=== PATIENT | female | born 1950 | race Caucasian/White ===

== ENCOUNTER 2019-08-19 14:27 | Inpatient (IN) | payer MEDICARE, OTHER ==
[~2019-08-19 14:27] MED LIST: ISOVUE-370 76%-LOCM 1 ML ONE
--- NOTE | 2019-08-19 14:46 | CT ---
CT Brain WO Con: 08/19/2019 12:00 AM CLINICAL HISTORY: Level 1 stroke. COMPARISON: None. FINDINGS: Hemorrhage: None. There is prominence of the extra-axial spaces indicating mild volume loss preferentially of the front oparietal lobes. Subdural hygroma formation not entirely excluded. Correlation with prior exams would be helpful in this regard. Ventricular system: Normal in size and morphology for the patient's age. Cerebral parenchyma: Mild microvascular ischemic disease. Midline shift: None. Mass: No mass effect. Calvarium: Normal. Visualized Paranasal sinuses: Clear. IMPRESSION: No acute intracranial hemorrhage or mass effect. Prominence of CSF density overlying the bifrontal convexities, as above. Telephone call placed to ER physician at 1440 hours.
[2019-08-19 14:50] LABS: Hemoglobin 13.2 g/dL (12.0-16.0); Mean Corpuscular HGB CONC 33.7 g/dL (32.0-36.0); Mean Corpuscular Hemoglobin 27.3 pg (27.0-31.0); Mean Platelet Volume 8.3 fL (7.4-10.4); Platelet Count 148 thou/uL (130-400); RBC Distribution Width 17.2 % (11.5-14.5); Red Blood Cell (RBC) Count 4.84 mill/uL (4.20-5.40); White Blood Cell (WBC) Count 9.6 thou/uL (4.8-10.8)
[2019-08-19 14:54] LABS: PTT 27.8 SEC (22.9-36.1); Prothrombin Time 12.9 SEC (12.0-14.7)
[2019-08-19 15:02] LABS: ALT (SGPT) 42 U/L (8-55); AST (SGOT) 92 U/L (5-34); Albumin 4.5 g/dL (3.4-4.8); Alkaline Phosphatase 82 U/L (40-110); Anion Gap 14 mmol/L (10-20); BUN (Urea Nitrogen) 13 mg/dL (9.8-20.1); Bilirubin, Total 0.4 mg/dL (0.2-1.2); CK (CPK) 2848 U/L (29-168); Calc. Creatinine Clearance 0 mL/min (70-130); Calcium 9.6 mg/dL (7.8-10.44); Carbon Dioxide 25 mmol/L (23-31); Chloride 90 mmol/L (98-107); Estimated GFR-MDRD 64; Globulin 3.4 g/dL (2.4-3.5); Glucose 68 mg/dL (80-115); Potassium 3.8 mmol/L (3.5-5.1); Protein, Total 7.9 g/dL (6.0-8.3); Sodium 125 mmol/L (136-145)
[2019-08-19 15:04] LABS: Anisocytosis SLIGHT = 6-15 cells (100X) (0-5/hpf); Band 7 % (5-11); Eosinophils 1 % (0-10); Lymphocytes 27 % (21-51); MDiff Complete? YES; Monocytes 3 % (0-10); Neutrophil 61 % (42-75); Platelet Morphology Comment Appears Adequate; Reactive Lymphocytes 1 % (0-10)
--- NOTE | 2019-08-19 15:04 | CT ---
CTA of the head with and without IV contrast and 3-D reformatted imaging. CTA of the neck with IV contrast and 3-D reformatted imaging 3 D Volume Rendering: DATE: 08/19/2019 12:00 AM HISTORY: Acute stroke, slurred speech COMPARISON: None FINDINGS: Right: CCA:No significant stenosis. Mild vascular calcification. ICA:No significant stenosis. Mild vascular calcification. MCA:No significant stenosis. SHAWNEE:No significant stenosis. [employer]ENDER:No significant stenosis. LEFT: CCA:Mild luminal narrowing of the mid left CCA due to predominantly noncalcified thrombus ICA:Vascular calcification, without significant stenosis MCA:No significant stenosis. SHAWNEE:No significant stenosis. AUT[employer] TENDER:No significant stenosis. Vertebrobasilar System: Left Vertebral:No significant stenosis. Right Vertebral:No significant stenosis. Basilar:Focal fenestration of the cephalad aspect of the basilar artery. Incidental note of pulmonary emphysema. IMPRESSION: Scattered vascular disease, without hemodynamically significant stenosis, occlusion or aneurysmal dil ation. Telephone call of findings provided to ER doctor at 1458 hours.
[2019-08-19] MEDS ORDERED: Aspirin Chewable 81 MG TAB ONE (15:19)
[2019-08-19] MEDS ORDERED: Senokot 8.6 MG TAB PO PRN (16:22)
[2019-08-19 17:48] VITALS: BMI 32.1
[2019-08-19] MEDS: Sodium Chloride 0.9% 1,000 ML IV SCH (19:14)
[2019-08-19] MEDS: Famotidine 20 MG TAB PO SCH (20:51)
[2019-08-19] MEDS ORDERED: PROVENTIL INHALER 6.7 G (200 INHALATIONS) INH PRN (21:02)
--- NOTE | 2019-08-20 02:01 | HP ---
CHIEF COMPLAINT: Slurred speech. HISTORY OF PRESENT ILLNESS: Ms. Carrera is a 69-year-old female, who was brought to the emergency room today for a chief complaint of slurred speech. This started about 1245 hours today. The patient reports that when she was having lunch with her daughter, her daughter mentioned that she had, had some slurred speech. The patient reports that she had a similar incident last week that resolved with time with no intervention. Past medical history pertinent for hypothyroidism, COPD, history of breast cancer, hyperlipidemia. The patient was worked up in the emergency room as a stroke. CT of the brain showed no acute intracranial hemorrhage or mass effect. CTA showed scattered vascular disease without any hemodynamically significant stenosis, occlusion, or dilatation. NIH scale on admission was 2 for some mild dysarthria, mild sensory deficits on the right side. Lab work was pertinent for sodium of 125, chloride 90, glucose 68, AST 92, CK was . Troponin undetectable. She is admitted to the stroke unit for further management. REVIEW OF SYSTEMS: Reports some dysphagia changes, dysarthria, mild sensory changes to the right side. All other systems reviewed and are negative unless mentioned in the HPI. PAST MEDICAL HISTORY: Hypothyroidism, COPD, breast cancer, and hyperlipidemia. PAST SURGICAL HISTORY: Left breast lumpectomy, bilateral hip replacement, hysterectomy, x2, tubal ligation and tonsillectomy. PSYCHIATRIC HISTORY: Anxiety. SOCIAL HISTORY: Reports that she has recently stopped drinking alcohol. She drank 2 shots per day last week. Denies any drug use. She is a former tobacco smoker, stopped more than 10 years ago. ALLERGIES: CODEINE. CURRENT MEDICATIONS: Albuterol inhaler 2 puffs q.6 hours as needed. PHYSICAL EXAMINATION: VITAL SIGNS: Blood pressure is 124/82, pulse is 64, respirations 18, temperature is 97.9, PO2 saturations are 96% on room air. CONSTITUTIONAL: She is alert and oriented to person, place, and time. She has some mild dysarthria, but follows tasks and instructions and answers questions appropriately. HEENT: Head is atraumatic and normocephalic. Eyes, pupils are equal, round, and reactive to light. Extraocular muscles are intact. There is no nystagmus. ENT, mouth exam is normal. Mucous membranes are moist. NECK: Normal range of motion. No tenderness. RESPIRATORY: Chest, breath sounds are clear. Chest expansion is equal. CARDIOVASCULAR: Regular rate and rhythm. Heart sounds are normal. ABDOMEN: Bowel sounds are normal. There is no tenderness on palpation. No peritoneal signs. BACK: Normal range of motion. No tenderness. EXTREMITIES: Upper extremities; range of motion is normal. Motor strength is normal. Mild ataxia of the right upper extremity. Radial pulse is normal. Lower extremity, normal range of motion. Motor strength is normal. Sensation intact to the left, impaired on the right. Pedal pulses are normal. NEURO: Some dysarthria, cerebellar deficits. [id number] is abnormal. Does have some mild dysarthria, mild ataxia of right upper extremity on [id number] exam. Decreased sensation to the right side. There is no aphasia. PSYCH: Has a normal affect. DIAGNOSTIC STUDIES: EKG in the emergency room shows a normal sinus rhythm, beats per minute 66, has an incomplete right bundle-branch block, first-degree AV block. PLAN/ASSESSMENT: 1. Dysarthria with some right-sided deficits. Obtain an MRI of the brain without contrast, echocardiogram, carotid Dopplers are necessary. Do the CTA. The patient was given an aspirin. We will continue this daily. The patient was not given tPA in the emergency room due to an NIH of 2. Check lipids and TSH. 2. Rhabdomyolysis with a CK of . Start normal saline at 75 mL per hour. Recheck value in the morning. 3. Hyponatremia, plan for osmolarity serum, electrolytes urine, creatinine urine and recheck values in the morning. 4. History of chronic obstructive pulmonary disease. I will restart her Albuterol inhaler, order some DuoNeb p.r.n. as needed. 5. Gastrointestinal and deep venous thrombosis prophylaxis has been started. 6. The patient is a full code. 7. Case discussed with Dr. Santos who agrees with plan. Job ID: [id number]
[2019-08-20] MEDS: rOPINIRole HCl 2 MG TAB PO PRN (03:43)
[2019-08-20 04:53] LABS: #Basophils 0.1 thou/uL (0.0-0.2); #Eosinphils 0.3 thou/uL (0.0-0.7); #Lymphocytes 2.3 thou/uL (1.20-3.40); #Monocytes 0.5 thou/uL (0.11-0.59); %Eosinophils 4.1 % (0.0-10.0); %Lymphocytes 31.9 % (21.0-51.0); %Monocytes 6.7 % (0.0-10.0); %Neutrophils 56.2 % (42.0-75.0); Hemoglobin 12.7 g/dL (12.0-16.0); Mean Corpuscular HGB CONC 33.1 g/dL (32.0-36.0); Mean Corpuscular Volume 81.7 fL (78.0-98.0); Mean Platelet Volume 8.2 fL (7.4-10.4); Platelet Count 143 thou/uL (130-400); RBC Distribution Width 17.3 % (11.5-14.5); Red Blood Cell (RBC) Count 4.69 mill/uL (4.20-5.40)
[2019-08-20 05:12] LABS: ALT (SGPT) 38 U/L (8-55); AST (SGOT) 78 U/L (5-34); Albumin 4.2 g/dL (3.4-4.8); Alkaline Phosphatase 78 U/L (40-110); Anion Gap 13 mmol/L (10-20); BUN (Urea Nitrogen) 13 mg/dL (9.8-20.1); Bilirubin, Total 0.2 mg/dL (0.2-1.2); CK (CPK) 2266 U/L (29-168); Calc. Creatinine Clearance 95 mL/min (70-130); Calcium 9.2 mg/dL (7.8-10.44); Carbon Dioxide 21 mmol/L (23-31); Chloride 94 mmol/L (98-107); Cholesterol 289 mg/dl (< 200 Desired); Estimated GFR-MDRD 70; Globulin 3.4 g/dL (2.4-3.5); Glucose 80 mg/dL (80-115); HDL Cholesterol 73 mg/dL (>60 Neg Risk); LDL Cholesterol, Calculated 182 mg/dL; Potassium 3.5 mmol/L (3.5-5.1); Protein, Total 7.6 g/dL (6.0-8.3); Sodium 124 mmol/L (136-145); Triglycerides 172 mg/dL (Less than 150)
[2019-08-20] MEDS ORDERED: FLU VACC TS2019-20(65YR UP)/PF 180 MCG/0.5 ML SYRINGE IM ONE (09:00)
[2019-08-20] MEDS: Famotidine 20 MG TAB PO SCH ×2 (10:06→21:06)
[2019-08-20] MEDS: Aspirin 325 mg Enteric Coated Tablet PO SCH (10:06)
[2019-08-20] MEDS: Enoxaparin Sodium 40 MG/0.4 ML SYRINGE SC SCH (10:07)
[2019-08-20] MEDS: Sodium Chloride 0.9% 1,000 ML IV SCH (10:08)
[2019-08-20] MEDS ORDERED: Non-Formulary Item 1 EACH (Levothyroxine Sodium [Synthroid] 137 MCG) PO SCH (11:23)
--- NOTE | 2019-08-20 11:24 | MRI ---
EXAM: MRI Brain WO Con PROVIDED CLINICAL HISTORY: Encephalopathy. Patient was a level 1 stroke alert with sudden onset of slurred speech on 08/19/2019. COMPARISON: CT head on 08/19/2019. FINDINGS: A few scattered punctate foci of increased FLAIR and T2-weighted signal intensity are seen in the per iventricular and subcortical white matter which are nonspecific but may be related to minimal chronic small vessel ischemic changes. There is no evidence of an acute infarction. Mild cerebral vol ume loss is present. The ventricular system is normal in size, shape, and position. The septum pellucidum and third ventricle are in the midline. Appropriate flow voids are demonstrated at the base of the brain. The orbits, paranasal sinuses, and skull base have a normal MRI appearance. IMPRESSION: No acute intracranial abnormality is demonstrated.
[2019-08-20] MEDS ORDERED: Levothyroxine Sodium 112 MCG TAB PO SCH (14:00)
[2019-08-20] MEDS ORDERED: Levothyroxine Sodium 25 MCG TAB PO SCH (14:00)
--- NOTE | 2019-08-20 14:20 | PDOC.HOSPP ---
- Subjective Encounter Date: 08/20/19 Encounter Time: 14:18 Subjective: Patient lying in bed with family at bedside. She reports feeling better today, no events over night. Walked with PT and tolerated well. MRI and other workup unremarkable, await echo. - Objective Vital Signs & Weight: Vital Signs (12 hours) Temp Pulse Pulse Pulse Resp BP BP 08/20/19 11:46 97.6 F 60 20 08/20/19 10:05 66 62 134/69 164/77 H 08/20/19 07:50 97.7 F 60 20 08/20/19 04:00 97.4 F L 60 16 BP Pulse Ox Pulse Ox Pulse Ox 08/20/19 11:46 171/78 H 95 08/20/19 10:05 97 96 08/20/19 07:50 150/73 H 95 08/20/19 04:00 148/75 H 94 L Weight Weight 205 lb 1.6 oz I&O: 08/19/19 08/20/19 08/21/19 06:59 06:59 06:59 Intake Total 1695 1559 Output Total 1150 Balance 545 1559 Result Diagrams: 08/20/19 04:27 08/20/19 04:27 Additional Labs: Accuchecks 08/19/19 14:34 POC Glucose 89 Radiology Reviewed by me: Yes Hospitalist ROS - Review of Systems Constitutional: denies: fever, chills, weakness Eyes: denies: vision change ENT: denies: nose discharge, mouth swelling, throat pain, throat swelling Respiratory: denies: cough, shortness of breath, SOB with excertion Cardiovascular: denies: chest pain, palpitations, light headedness Gastrointestinal: denies: nausea, vomiting, abdominal pain Musculoskeletal: denies: neck pain, shoulder pain, back pain Skin: denies: rash, lesions Neurological: denies: weakness, change in speech, confusion All other systems reviewed; all pertinent +/- noted in HPI/Subj - Medication Medications: Active Medications Generic Name Dose Route Start Last Admin Trade Name Freq PRN Reason Stop Dose Admin Albuterol Sulfate 2 puff 08/19/19 21:02 08/19/19 21:23 Proventil Hfa INH 2 puff Q6HR PRN Administration Dyspnea/Wheezing/SOB Aspirin 325 mg 08/20/19 09:00 08/20/19 10:06 Ecotrin PO 325 mg DAILY ESTEBAN Administration Enoxaparin Sodium 40 mg 08/20/19 09:00 08/20/19 10:07 Lovenox SC 40 mg 0900 ESTEBAN Administration Famotidine 20 mg 08/19/19 21:00 08/20/19 10:06 Pepcid PO 20 mg BID ESTEBAN Administration Sodium Chloride 1,000 mls @ 75 mls/hr 08/19/19 16:30 08/20/19 10:08 Normal Saline 0.9% IV 1,000 mls .[id number] ESTEBAN Administration Levothyroxine Sodium 112 mcg 08/20/19 14:00 08/20/19 13:50 Synthroid PO 08/20/19 16:00 112 mcg 1400 ESTEBAN Administration Levothyroxine Sodium 25 mcg 08/20/19 14:00 08/20/19 13:50 Synthroid PO 08/20/19 16:00 25 mcg 1400 ESTEBAN Administration Ropinirole HCl 3 mg 08/20/19 02:25 08/20/19 03:43 Requip PO 3 mg TID PRN Administration RESTLESS LEG - Exam General Appearance: NAD, awake alert Eye: PERRL, anicteric sclera ENT: normocephalic atraumatic, moist mucosa Neck: supple, symmetric Heart: RRR, no murmur Respiratory: CTAB, no wheezes Gastrointestinal: soft, non-tender, normal bowel sounds Extremities: no cyanosis, no clubbing Skin: normal turgor, no rashes Neurological: cranial nerve grossly intact, no new deficit Musculoskeletal: normal tone, no muscle wasting Psychiatric: normal affect, A&O x 3 Hosp A/P (1) Hyponatremia Code(s): E87.1 - HYPO-OSMOLALITY AND HYPONATREMIA Status: Acute (2) Rhabdomyolysis Code(s): M62.82 - RHABDOMYOLYSIS Status: Acute (3) Hypothyroidism Code(s): E03.9 - HYPOTHYROIDISM, UNSPECIFIED Status: Acute (4) COPD (chronic obstructive pulmonary disease) Status: Acute - Plan old records reviewed/req, plan discussed w/ family, PT/OT Hold home statin Nephrology consulted for hyponatremia, ordered UA and urine osmolarity MRI shows no acute infarction Await echo results Patient tolerating PT/OT and may continue on walking program Restart home dose of Synthroid as she has not had home meds in over a month
[2019-08-20 14:25] LABS: Anion Gap 15 mmol/L (10-20); BUN (Urea Nitrogen) 12 mg/dL (9.8-20.1); Calc. Creatinine Clearance 96 mL/min (70-130); Calcium 8.9 mg/dL (7.8-10.44); Carbon Dioxide 22 mmol/L (23-31); Chloride 94 mmol/L (98-107); Estimated GFR-MDRD 71; Glucose 87 mg/dL (80-115); Potassium 3.8 mmol/L (3.5-5.1); Sodium 127 mmol/L (136-145)
[2019-08-20 16:06] LABS: Bacteria/HPF None Seen HPF (None Seen); Bilirubin Negative (Negative); Blood, Urine Negative (Negative); Clarity Clear (Clear); Glucose, Urine (Dipstick) Normal (Negative); Leukocyte Negative Leu/uL (Negative); Nitrite Negative (Negative); Protein, Urine (Dipstick) Negative (Neg-Trace); RBC/HPF 0-3 HPF (0-3); Squamous Epithelial None Seen HPF (0-3); Urobilinogen Normal mg/dL (Less than 2); WBC/HPF 0-3 HPF (0-3)
[2019-08-20 16:54] LABS: Potassium, Urine Less than 10.0 mmol/L; Sodium, Urine 97 mmol/L (Not Available)
--- NOTE | 2019-08-20 18:59 | CON ---
DATE OF CONSULTATION: CONSULTING PHYSICIAN: Wade Anderson MD REQUESTING PHYSICIAN: MARLI Patton REASON FOR CONSULTATION: Hyponatremia. IMPRESSION: Hyponatremia. This is likely in the context of hypothyroidism, untreated. PLAN: 1. Discontinue IV fluid. 2. Resume thyroid replacement therapy. 3. Regular diet with increased protein intake. 4. Further management will be dependent on the clinical course. HISTORY OF PRESENT ILLNESS: History is that of a 69-year-old female patient, who presented here with slurred speech and noted with a sodium level of 124. Of note, for several months, the patient has not been taking her thyroid replacement medication because the primary care physician did not call in the medication for her while she has been out of town on work duties. In any case, the patient's evaluation revealed a sodium of 124 and a TSH that is mildly out of range. Urine chemistry is consistent with hypothyroidism-induced hyponatremia. As a result of this low sodium, decision has been taken to involve Renal in the management of this case. PAST MEDICAL HISTORY: Significant for hypothyroidism, COPD, breast cancer, dyslipidemia. SOCIAL HISTORY: Recently quit alcohol abuse. Remote tobacco use, more than 2 years ago. ALLERGIES: CODEINE. MEDICATIONS: Reviewed and as documented on [employer]. FAMILY HISTORY: Not significantly related to presenting illness. REVIEW OF SYSTEMS: As documented in the body of the history. All the other systems were reviewed and found not to be significantly related to presenting illness. PHYSICAL EXAMINATION: VITAL SIGNS: The patient noted with the following vital signs; afebrile, temperature 97.6, pulse 60, respiratory rate of 20, O2 saturation of 95% with blood pressure 171/78. HEENT: Unremarkable. Moist oral mucosa. No conjunctival injection or icterus. NECK: Supple. CARDIOVASCULAR SYSTEM: First and second heart sounds were heard. RESPIRATORY SYSTEM: Clear to auscultation. DIGESTIVE SYSTEM: Revealed a benign abdomen with positive bowel sounds. EXTREMITIES: No peripheral edema. SKIN: No new gross rash. LYMPHATICS: No peripheral lymphadenopathy. SUMMARY: A 69-year-old female patient who presented here with slurred speech and noted with hyponatremia in the context of suboptimal thyroid replacement therapy. Thank you for this consultation. We will follow with you. Job ID: [id number]
[2019-08-20] MEDS: Gabapentin 300 MG CAP PO SCH (21:06)
[2019-08-21 04:50] LABS: #Basophils 0.1 thou/uL (0.0-0.2); #Eosinphils 0.3 thou/uL (0.0-0.7); #Lymphocytes 1.8 thou/uL (1.20-3.40); #Monocytes 0.4 thou/uL (0.11-0.59); #Neutrophils 4.8 thou/uL (1.40-6.50); %Basophils 0.7 % (0.0-1.0); %Eosinophils 3.6 % (0.0-10.0); %Lymphocytes 24.8 % (21.0-51.0); %Neutrophils 64.9 % (42.0-75.0); Hemoglobin 12.7 g/dL (12.0-16.0); Mean Corpuscular HGB CONC 33.5 g/dL (32.0-36.0); Mean Corpuscular Hemoglobin 27.2 pg (27.0-31.0); Mean Corpuscular Volume 81.4 fL (78.0-98.0); Mean Platelet Volume 8.2 fL (7.4-10.4); Platelet Count 138 thou/uL (130-400); RBC Distribution Width 17.2 % (11.5-14.5); Red Blood Cell (RBC) Count 4.66 mill/uL (4.20-5.40); White Blood Cell (WBC) Count 7.3 thou/uL (4.8-10.8)
[2019-08-21 05:11] LABS: ALT (SGPT) 40 U/L (8-55); AST (SGOT) 86 U/L (5-34); Albumin 4.4 g/dL (3.4-4.8); Alkaline Phosphatase 76 U/L (40-110); Anion Gap 16 mmol/L (10-20); BUN (Urea Nitrogen) 8 mg/dL (9.8-20.1); Bilirubin, Total 0.3 mg/dL (0.2-1.2); Calc. Creatinine Clearance 103 mL/min (70-130); Carbon Dioxide 21 mmol/L (23-31); Chloride 94 mmol/L (98-107); Estimated GFR-MDRD 76; Globulin 3.5 g/dL (2.4-3.5); Glucose 88 mg/dL (80-115); Potassium 3.8 mmol/L (3.5-5.1); Protein, Total 7.9 g/dL (6.0-8.3); Sodium 127 mmol/L (136-145)
[2019-08-21] MEDS: Levothyroxine Sodium 25 MCG TAB PO SCH (06:38)
[2019-08-21] MEDS: Levothyroxine Sodium 112 MCG TAB PO SCH (06:38)
[2019-08-21] MEDS: Gabapentin 300 MG CAP PO SCH ×2 (08:22→20:49)
[2019-08-21] MEDS: Anastrozole 1 MG TAB PO SCH (08:22)
[2019-08-21] MEDS: Aspirin 325 mg Enteric Coated Tablet PO SCH (08:22)
[2019-08-21] MEDS: Famotidine 20 MG TAB PO SCH ×2 (08:22→20:49)
[2019-08-21] MEDS: Enoxaparin Sodium 40 MG/0.4 ML SYRINGE SC SCH (08:22)
[2019-08-21] MEDS: rOPINIRole HCl 2 MG TAB PO PRN (20:49)
--- NOTE | 2019-08-22 01:08 | DIS ---
DATE OF ADMISSION: 08/20/2019 DATE OF DISCHARGE: 08/21/2019 PRIMARY CARE PROVIDER: Unknown. DISCHARGE DIAGNOSES: 1. Transient ischemic attack. 2. Hypothyroidism. 3. Medication noncompliance. 4. Hyponatremia, secondary to hypothyroidism. CONDITION OF PATIENT ON THE DAY OF DISCHARGE: Stable. I assessed Ms. Carrera on the day of discharge. She denies any chest pain or shortness of breath. Vital signs are stable. S1 and S2 are heard, regular. Lungs are clear to auscultation bilaterally. CONSULTATIONS DURING THIS HOSPITALIZATION: Nephrology, Wade Anderson MD DISCHARGE MEDICATIONS: 1. Albuterol p.r.n. 2. Arimidex 1 mg daily. 3. Neurontin 300 mg 2 times a day. 4. Synthroid 137 mcg daily. 5. Loratadine 10 mg daily. 6. Oxybutynin 10 mg daily. 7. Requip 3 mg 3 times a day as needed. 8. Sertraline 50 mg daily. 9. Simvastatin 40 mg at bedtime. 10. Aspirin 325 mg daily. HOSPITAL COURSE: Ms. Carrera is a pleasant 69-year-old lady, who was admitted to [facility] for transient ischemic attack on August 19, 2019. Please refer to Ms. Farmer's history and physical note dated August 20, 2019, for further details. She was also found to be in rhabdomyolysis and hyponatremic. Her hyponatremia was secondary to hypothyroidism in the context of medication noncompliance. Her TSH was elevated at 88.74 and free T4 was less than 0.40. Cortisol level was normal. She received intravenous fluids and has been cleared for discharge by Nephrology Service. On the day of discharge, she has sodium 127, potassium 3.8, creatinine 0.75, creatine kinase 2418, normal white count, normal hemoglobin and normal platelet count. She was advised to follow up with her primary care provider and have her CK level checked in 3 to 5 days. She was also advised to have her thyroid profile checked in 6-8 weeks through primary care provider's office. DISCHARGE DESTINATION: Home. TIME SPENT: Total amount of time spent coordinating this discharge: 32 minutes. Please note that MRI of the brain did not show any acute intracranial abnormality. 2D echocardiogram showed left ventricular ejection fraction of 50% to 55%, mild mitral regurgitation, sclerotic aortic valve with normal excursion and mild tricuspid regurgitation. Job ID: [id number]
[2019-08-22 06:19] LABS: #Eosinphils 0.2 thou/uL (0.0-0.7); #Lymphocytes 1.8 thou/uL (1.20-3.40); #Monocytes 0.4 thou/uL (0.11-0.59); #Neutrophils 3.5 thou/uL (1.40-6.50); %Basophils 0.5 % (0.0-1.0); %Eosinophils 3.8 % (0.0-10.0); %Lymphocytes 29.7 % (21.0-51.0); Hemoglobin 12.4 g/dL (12.0-16.0); Mean Corpuscular HGB CONC 33.4 g/dL (32.0-36.0); Mean Corpuscular Hemoglobin 27.3 pg (27.0-31.0); Mean Corpuscular Volume 81.9 fL (78.0-98.0); Mean Platelet Volume 8.1 fL (7.4-10.4); Platelet Count 148 thou/uL (130-400); RBC Distribution Width 17.5 % (11.5-14.5); Red Blood Cell (RBC) Count 4.54 mill/uL (4.20-5.40)
[2019-08-22] MEDS: Levothyroxine Sodium 112 MCG TAB PO SCH (06:28)
[2019-08-22] MEDS: Levothyroxine Sodium 25 MCG TAB PO SCH (06:28)
[2019-08-22 06:42] LABS: ALT (SGPT) 37 U/L (8-55); AST (SGOT) 70 U/L (5-34); Albumin 4.2 g/dL (3.4-4.8); Alkaline Phosphatase 72 U/L (40-110); Anion Gap 13 mmol/L (10-20); BUN (Urea Nitrogen) 13 mg/dL (9.8-20.1); Bilirubin, Total 0.3 mg/dL (0.2-1.2); Calc. Creatinine Clearance 100 mL/min (70-130); Calcium 8.8 mg/dL (7.8-10.44); Carbon Dioxide 22 mmol/L (23-31); Chloride 95 mmol/L (98-107); Estimated GFR-MDRD 76; Globulin 3.3 g/dL (2.4-3.5); Glucose 92 mg/dL (80-115); Potassium 3.9 mmol/L (3.5-5.1); Protein, Total 7.5 g/dL (6.0-8.3); Sodium 126 mmol/L (136-145)
[2019-08-22] MEDS: Anastrozole 1 MG TAB PO SCH (09:15)
[2019-08-22] MEDS: Aspirin 325 mg Enteric Coated Tablet PO SCH (09:15)
[2019-08-22] MEDS: Famotidine 20 MG TAB PO SCH (09:16)
[2019-08-22] MEDS: Gabapentin 300 MG CAP PO SCH (09:16)
[2019-08-22] MEDS: Enoxaparin Sodium 40 MG/0.4 ML SYRINGE SC SCH (09:16)
[2019-08-22 12:12] VITALS: BP 156/75; TEMP 98.2
--- NOTE | 2019-08-22 16:56 | EKG ---
Test Reason : Blood Pressure : / mmHG Vent. Rate : 066 BPM Atrial Rate : 066 BPM P-R Int : 232 ms QRS Dur : 098 ms QT Int : 426 ms P-R-T Axes : 054 043 048 degrees QTc Int : 446 ms Sinus rhythm with 1st degree A-V block Low voltage QRS Incomplete right bundle branch block Abnormal ECG Confirmed by IVY LANZA DO ([id number]), film or videotape editor KLAUS POLO ([id number]) on 08/22/2019 4:56:20 PM Referred By: Confirmed By:IVY LANZA DO
--- NOTE | 2019-08-22 22:40 | DIS ---
DATE OF ADMISSION: 08/20/2019 DATE OF DISCHARGE: 08/22/2019 PRIMARY CARE PROVIDER: Dr. Nick Montoya in [place], [place]. DISCHARGE DIAGNOSES: 1. Transient ischemic attack. 2. Hypothyroidism. 3. Medication noncompliance. 4. Hyponatremia secondary to hypothyroidism. CONDITION OF PATIENT ON THE DAY OF DISCHARGE: I assessed Ms. Carrera on the day of discharge. She denies any chest pain or shortness of breath. Vital signs are stable, S1 and S2 are heard. Lungs are clear to auscultation. CONSULTATIONS: Nephrology, Wade Anderson MD DISCHARGE MEDICATIONS: 1. Albuterol as needed. 2. Arimidex 1 mg daily. 3. Neurontin 300 mg 2 times a day. 4. Synthroid 137 mcg daily. 5. Loratadine 10 mg daily. 6. Oxybutynin 10 mg daily. 7. Requip 3 mg 3 times a day as needed. 8. Sertraline 50 mg daily. 9. Simvastatin 40 mg at bedtime. 10. Aspirin 325 mg daily. HOSPITAL COURSE: Ms. Carrera is a pleasant 69-year-old lady, who was admitted to [facility] for transient ischemic attack on August 19, 2019. Please refer to Ms. Farmer's history and physical note dated August 20, 2019, for further details. She was also hyponatremic and had rhabdomyolysis. She was seen by Nephrology Service. Her hyponatremia was found to be secondary to hypothyroidism because of medication noncompliance. TSH was elevated at 88.74 and free T4 was less than 0.40. She received intravenous fluids and was cleared for discharge by Nephrology Service. On the day of discharge, she has sodium 126, potassium 3.9, creatinine 0.75, white count 6000, hemoglobin 12.4, and platelet count 148,000. She has been advised to follow up with her primary care provider and have her CK level and sodium checked in 3 to 5 days. She is also advised to have her thyroid profile checked in 6-8 weeks through primary care provider's office. MRI of the brain did not show any acute intracranial abnormality. 2D echocardiogram showed left ventricular ejection fraction of 50% to 55%, mild mitral regurgitation, sclerotic aortic valve with normal excursion and mild tricuspid regurgitation. DISCHARGE DESTINATION: Home. TIME SPENT: Total amount of time spent coordinating this discharge: 32 minutes. Job ID: [id number]
== END 2019-08-22 15:46 | disposition home or self-care (01) | DRG 69 ==
LOC: ERS 14:27 → 2SE 17:28 → OBSVTOIN 08-20 14:17
PROVIDERS: ADMIT Internal Medicine; ATTEND Internal Medicine
DX: G45.9 Transient cerebral ischemic attack, unspecified (principal); E87.1 Hypo-osmolality and hyponatremia; M62.82 Rhabdomyolysis; E03.9 Hypothyroidism, unspecified; J44.9 Chronic obstructive pulmonary disease, unspecified; E78.5 Hyperlipidemia, unspecified; Z96.643 Presence of artificial hip joint, bilateral; F41.9 Anxiety disorder, unspecified; R29.702 NIHSS score 2; R40.2412 Glasgow coma scale score 13-15, at arrival to emergency department; R47.1 Dysarthria and anarthria; Z85.3 Personal history of malignant neoplasm of breast; Z90.710 Acquired absence of both cervix and uterus; Z98.51 Tubal ligation status; Z88.5 Allergy status to narcotic agent; Z91.14 Patient's other noncompliance with medication regimen
CPT/HCPCS: 36415; 36416; 70450; 70496; 70498; 70551; 80053; 80061; 81001; 82436; 82533; 82550; 83930; 83935; 84133; 84300; 84439; 84443; 84484; 85025; 85610; 85730; 90471; 90662; 93005; 93306; G0008; J1650; Q9966

== ENCOUNTER 2019-12-20 08:54 | Outpatient (CLI) | payer MEDICARE ==
--- NOTE | 2019-12-20 10:14 | MMO ---
Bilateral MAMMO Bilat Diag DDI+RAYMUNDO. CLINICAL HISTORY: Patient is 69 years old and is seen for diagnostic exam. The patient has the following family history of breast cancer: niece. The patient has a history of invasive lobular left breast carcinoma in 2013. The patient has a history of right Stereotatic Biopsy in October, - benign, left Ultrasound Guided Core Biopsy in 2013 - malignant - invasi ve lobular carcinoma and left Lumpectomy in 2013 - malignant. VIEWS: The views performed were: bilateral craniocaudal with tomosynthesis; bilateral mediolateral with tomosynthesis; bilateral mediolateral oblique with tomosynthesis; left mediolateral; left mediolateral oblique; and left exaggerated craniocaudal. FILMS COMPARED: The present examination has been compared to prior imaging studies performed at [facility] on 10/02/2016, 12/08/2016 and 12/09/2017. This study has been interpreted with the assistance of computer-aided detection. MAMMOGRAM FINDINGS: The breasts are heterogeneously dense, which could obscure a lesion on mammography. Finding 1: There are stable benign appearing calcifications seen in both breasts. Finding 2: There are stable post operative changes seen in the left breast. There are no suspicious masses, suspicious calcifications, or new areas of architectural distortion. IMPRESSION: THERE IS NO MAMMOGRAPHIC EVIDENCE OF MALIGNANCY. A ROUTINE FOLLOW-UP MAMMOGRAM IN 1 YEAR IS RECOMMENDED. THE RESULTS OF THIS EXAM WERE SENT TO THE PATIENT. ACR BI-RADS Category 2 - Benign finding MAMMOGRAPHY NOTE: 1. A negative mammogram report should not delay a biopsy if a dominant of clinically suspicious mass is present. 2. Approximately 10% to 15% of breast cancers are not detected by mammography. 3. Adenosis and dense breasts may obscure an underlying neoplasm. Reported by: BELLA OVIEDO MD Electonically Signed: [id number]
== END 2019-12-20 08:55 | disposition home or self-care (01) ==
LOC: BICMAMMO 08:54
PROVIDERS: ATTEND Physician Assistant
DX: Z08 Encounter for follow-up examination after completed treatment for malignant neoplasm (principal); Z85.3 Personal history of malignant neoplasm of breast
CPT/HCPCS: 77066; G0279

== ENCOUNTER 2019-12-28 10:12 | Outpatient (CLI) | payer MEDICARE ==
--- NOTE | 2019-12-28 11:23 | BD ---
BONE DENSITOMETRY USING DEXA: Date: 12/28/2019 HISTORY: Postmenopausal screening for osteoporosis. FINDINGS: Lumbar Spine: BMD (g/cm2) L1 1.029 T-Score: 0.4 Z-Score: 2.2 L2 1.139 T-Score: 1.0 Z-Score: 3.1 L3 1.077 T-Score: -0.1 Z-Score: 2.1 L4 0.968 T-Score: -0.8 Z-Score: 1.4 L1-L4 1.048 T-Score: 0.0 Z-Score: 2.1 Left Forearm: UD 0.335 T-Score: -1.9 Z-Score: -0.3 Mid 0.396 T-Score: -3.9 Z-Score: -1.8 1/3 0.573 T-Score: -2.0 Z-Score: 0.1 Total 0.405 T-Score: -3.2 Z-Score: -1.2 IMPRESSION: Osteopenia. POS: OFF
== END 2019-12-28 10:13 | disposition home or self-care (01) ==
LOC: BICMAMMO 10:12
PROVIDERS: ATTEND Physician Assistant
DX: Z13.820 Encounter for screening for osteoporosis (principal); N95.1 Menopausal and female climacteric states; M85.832 Other specified disorders of bone density and structure, left forearm
CPT/HCPCS: 77080

== ENCOUNTER 2020-05-05 11:42 | Observation (INO) | payer MEDICARE ==
[2020-05-05 12:42] LABS: #Basophils 0.1 thou/uL (0.0-0.2); #Eosinphils 0.2 thou/uL (0.0-0.7); #Lymphocytes 1.8 thou/uL (1.20-3.40); #Monocytes 0.7 thou/uL (0.11-0.59); %Basophils 1.2 % (0.0-1.0); %Eosinophils 2.9 % (0.0-10.0); %Lymphocytes 23.1 % (21.0-51.0); %Monocytes 8.8 % (0.0-10.0); Hemoglobin 14.8 g/dL (12.0-16.0); Mean Corpuscular HGB CONC 33.6 g/dL (32.0-36.0); Mean Corpuscular Hemoglobin 30.2 pg (27.0-31.0); Mean Corpuscular Volume 90.1 fL (78.0-98.0); Mean Platelet Volume 7.6 fL (7.4-10.4); Platelet Count 139 thou/uL (130-400); RBC Distribution Width 12.6 % (11.5-14.5); Red Blood Cell (RBC) Count 4.89 mill/uL (4.20-5.40); White Blood Cell (WBC) Count 7.8 thou/uL (4.8-10.8)
[2020-05-05 13:05] LABS: ALT (SGPT) 17 U/L (8-55); AST (SGOT) 17 U/L (5-34); Albumin 4.1 g/dL (3.4-4.8); Alkaline Phosphatase 68 U/L (40-110); Anion Gap 16 mmol/L (10-20); BUN (Urea Nitrogen) 8 mg/dL (9.8-20.1); Bilirubin, Total 0.4 mg/dL (0.2-1.2); Calc. Creatinine Clearance 0 mL/min (70-130); Calcium 8.8 mg/dL (7.8-10.44); Carbon Dioxide 22 mmol/L (23-31); Chloride 97 mmol/L (98-107); Estimated GFR-MDRD 87; Globulin 3.1 g/dL (2.4-3.5); Glucose 112 mg/dL (80-115); Lipase 11 U/L (8-78); Potassium 3.5 mmol/L (3.5-5.1); Protein, Total 7.2 g/dL (6.0-8.3); Sodium 131 mmol/L (136-145)
--- NOTE | 2020-05-05 13:39 | RAD ---
PORTABLE CHEST ONE VIEW: Date: 05-05-2020 Time: 12:27 p.m. History: Cough, dizziness, nausea, vomiting. FINDINGS: The heart size is normal. The lungs are expanded without lobar consolidation, pneumothoraces or pleur al effusions. IMPRESSION: No acute process. POS: MESHA
[2020-05-05] MEDS ORDERED: Ondansetron ODT 4 MG TAB SL PRN (14:40)
[2020-05-05] MEDS ORDERED: Sodium Chloride 0.9% 1,000 ML IV SCH (14:40)
[2020-05-05] MEDS ORDERED: Ondansetron PF 4 MG/2 ML Vial IVP PRN (14:40)
[2020-05-05] MEDS ORDERED: Acetaminophen 325 MG TAB PO PRN (14:40)
[2020-05-05] MEDS ORDERED: Aspirin Chewable 81 MG TAB ONE (15:08)
[2020-05-05 17:12] VITALS: BMI 30.2
[2020-05-05 18:06] LABS: Troponin I Less than 0.010 ng/mL (< 0.028)
[2020-05-05] MEDS: Sodium Chloride 0.9% 1,000 ML IV SCH (19:48)
[2020-05-05 19:58] LABS: Troponin I Less than 0.010 ng/mL (< 0.028)
--- NOTE | 2020-05-05 19:59 | HP ---
CHIEF COMPLAINT: Dizziness. HISTORY OF PRESENT ILLNESS: The patient is a 69-year-old female with past medical history of hypothyroidism, breast cancer, hyperlipidemia, COPD, and TIA, who presented to the hospital with complaints of increasing dizziness over the past week. The patient stated that her symptoms are more pronounced when she stands up from a sitting position or after getting up from bed. In the ER, orthostatic vitals were obtained and hypotension was noted. The patient stated that she does not eat or drink much apart from coffee. She denies chest pain, shortness of breath, palpitations, or syncope. REVIEW OF SYSTEMS: Negative except as noted in HPI. PAST MEDICAL HISTORY: As noted above. PAST SURGICAL HISTORY: Left breast lumpectomy, bilateral hip replacement, hysterectomy, tubal ligation, and tonsillectomy. SOCIAL HISTORY: The patient drinks three 6-ounce vodka daily. She denies illicit drug use and was a former smoker. PHYSICAL EXAMINATION: GENERAL: The patient is alert and oriented x3. HEENT: Head is normocephalic and atraumatic. Extraocular muscles are intact. Mouth: Mucosa is dry. NECK: Supple. CHEST: Clear to auscultation bilaterally. CARDIOVASCULAR: Revealed normal S1 and S2. No murmurs, rubs, or gallops. Regular rate and rhythm. ABDOMEN: Soft, nontender, and nondistended. NEUROLOGIC: Unremarkable. ASSESSMENT: 1. Orthostatic hypotension. 2. Dehydration. 3. Dizziness. 4. Stable chronic obstructive pulmonary disease. 5. History of hypothyroidism. PLAN: The patient will be placed in observation and she will be hydrated overnight. Repeat orthostatic vitals tomorrow and if stable, consider discharging the patient. Job ID: [id number]
[2020-05-05] MEDS ORDERED: busPIRone HCl 10 MG TAB PO SCH (21:00)
[2020-05-05] MEDS ORDERED: Simvastatin 40 MG TAB PO SCH (21:00)
[2020-05-05] MEDS ORDERED: Pramipexole Di-HCl 0.25 MG TAB PO SCH (21:00)
[2020-05-06] MEDS: Sodium Chloride 0.9% 1,000 ML IV SCH ×2 (02:55→13:25)
[2020-05-06] MEDS ORDERED: Levothyroxine Sodium 25 MCG TAB PO SCH (06:00)
[2020-05-06] MEDS ORDERED: Levothyroxine Sodium 112 MCG TAB PO SCH (06:00)
[2020-05-06] MEDS ORDERED: Mometasone 200 MCG/Formoterol 5 MCG 120 PUFF INHALER INH SCH (06:30)
--- NOTE | 2020-05-06 08:18 | PDOC.HOSPP ---
- Subjective Encounter Date: 05/06/20 Encounter Time: 13:10 Subjective: Patient still a bit dizzy with ambulation. This has been going on and stable for over 3 weeks. Worked up by PCP in office. Told of persisted to go to the ER so she came in last night. No progression. Had some mild orthostasis last night , better this AM after fluids. Patient does drink 3-6 vodkas per day. States she has quit in the past without withdrawal symptoms and is open to stopping this. - Objective Vital Signs & Weight: Vital Signs (12 hours) Temp Pulse Resp BP Pulse Ox 05/06/20 08:06 97.8 F 71 14 167/80 H 94 L 05/06/20 03:27 97.6 F 76 16 167/75 H 94 L 05/05/20 23:41 97.8 F 70 16 155/77 H 93 L Weight Weight 186 lb 15.232 oz I&O: 05/05/20 05/06/20 05/07/20 06:59 06:59 06:59 Intake Total 1600 Balance 1600 Result Diagrams: 05/05/20 12:30 05/05/20 12:30 Hospitalist ROS - Review of Systems Constitutional: denies: fever, chills Respiratory: denies: cough, shortness of breath Cardiovascular: denies: chest pain, palpitations, orthopnea Gastrointestinal: denies: nausea, vomiting, abdominal pain Neurological: denies: weakness, numbness, incoordination, change in speech, confusion, seizures - Medication Medications: Active Medications Generic Name Dose Route Start Last Admin Trade Name Freq PRN Reason Stop Dose Admin Anastrozole 1 mg 05/06/20 09:00 05/06/20 08:10 Arimidex PO 1 mg DAILY ESTEBAN Administration Buspirone HCl 15 mg 05/05/20 21:00 05/05/20 20:19 Buspar PO 15 mg QPM ESTEBAN Administration Clopidogrel Bisulfate 75 mg 05/06/20 09:00 05/06/20 08:10 Plavix PO 75 mg DAILY ESTEBAN Administration Sodium Chloride 1,000 mls @ 100 mls/hr 05/05/20 18:45 05/06/20 02:55 Normal Saline 0.9% IV 1,000 mls .Q10H ESTEBAN Administration Levothyroxine Sodium 112 mcg 05/06/20 06:00 05/06/20 05:55 Synthroid PO 112 mcg 0600 ESTEBAN Administration Levothyroxine Sodium 25 mcg 05/06/20 06:00 05/06/20 05:56 Synthroid PO 25 mcg 0600 ESTEBAN Administration Loratadine 10 mg 05/06/20 09:00 05/06/20 08:09 Claritin PO 10 mg DAILY ESTEBAN Administration Mometasone Furoate/Formoterol Fumar 2 puff 05/06/20 06:30 05/06/20 06:55 Dulera 200 Mcg/5 Mcg Inhaler INH 2 puff BID-RT ESTEBAN Administration Oxybutynin Chloride 10 mg 05/06/20 09:00 05/06/20 08:09 Ditropan PO 10 mg DAILY ESTEBAN Administration Pramipexole Dihydrochloride 0.5 mg 05/05/20 21:00 05/05/20 20:19 Mirapex PO 0.5 mg QPM ESTEBAN Administration Sertraline HCl 50 mg 05/06/20 09:00 05/06/20 08:09 Zoloft PO 50 mg DAILY ESTEBAN Administration Simvastatin 40 mg 05/05/20 21:00 05/05/20 20:19 Zocor PO 40 mg HS ESTEBAN Administration - Exam General Appearance: NAD, awake alert ENT: moist mucosa Heart: RRR, no murmur, no gallops, no rubs Respiratory: CTAB, no wheezes, no rales, no ronchi Gastrointestinal: soft, non-tender, non-distended, normal bowel sounds Neurological: cranial nerve grossly intact, normal sensation to touch, no weakness, no focal deficits, no new deficit Psychiatric: normal affect, normal behavior, A&O x 3 Hosp A/P (1) Orthostatic hypotension Code(s): I95.1 - ORTHOSTATIC HYPOTENSION Status: Resolved (2) Dizziness Code(s): R42 - DIZZINESS AND GIDDINESS Status: Acute (3) Dehydration Code(s): E86.0 - DEHYDRATION Status: Resolved (4) COPD (chronic obstructive pulmonary disease) Status: Chronic (5) Hyponatremia Code(s): E87.1 - HYPO-OSMOLALITY AND HYPONATREMIA Status: Chronic (6) Hypothyroidism Code(s): E03.9 - HYPOTHYROIDISM, UNSPECIFIED Status: Chronic (7) Alcohol abuse Code(s): F10.10 - ALCOHOL ABUSE, UNCOMPLICATED Status: Chronic - Plan rechecking orthostatic vital signs- ok this AM, can d/c home Recommend outpatient neurology and possibly cardiology followup No evidence acute stroke or other acute process at this time patient needs to cut down or discontinue vodka and increase food intake
[2020-05-06] MEDS ORDERED: Loratadine 10 MG TAB PO SCH (09:00)
[2020-05-06] MEDS ORDERED: Oxybutynin 5 MG TAB PO SCH (09:00)
[2020-05-06] MEDS ORDERED: Anastrozole 1 MG TAB PO SCH (09:00)
[2020-05-06] MEDS ORDERED: Clopidogrel Bisulfate 75 MG TAB PO SCH (09:00)
[2020-05-06 11:51] VITALS: BP 164/80; TEMP 97.9
--- NOTE | 2020-05-07 05:39 | DIS ---
DATE OF ADMISSION: 05/05/2020 DATE OF DISCHARGE: 05/06/2020 PRIMARY CARE PHYSICIAN: Laury Lorenz M.D. REASON FOR ADMISSION: Dizziness. DISCHARGE DIAGNOSES: 1. Orthostatic hypotension, improved. 2. Dizziness. 3. Dehydration, resolved. 4. Chronic obstructive pulmonary disease. 5. Hyponatremia, chronic. 6. Hypothyroidism. 7. Alcohol abuse. PROCEDURE: None. CONSULTATIONS: None. SUMMARY OF HOSPITAL COURSE: This is a 69-year-old female with a history of dizziness upon standing and walking around for the past 3-4 weeks. The patient has not had any other symptoms with this. It does not make her feel like she is going to pass out. She has never been unsteady on her feet. She did go see her primary care doctor after a couple of weeks and got some blood work done that was all normal, and she was told if this remains persistent, she should go to the hospital. The patient had persistence of symptoms, it did not get any worse, but as her primary care physician's instructions, she did come into the hospital for evaluation, there she was noted to have a drop in blood pressure orthostatic vital signs from 143/73 sitting with a pulse of 83, with drop of blood pressure to 112 /61 standing, and pulse of 96. The patient did report some dizziness with position change in the emergency room so she was admitted to the hospital. She was given IV fluids overnight. She had no change in her symptoms during her hospitalization , was able to ambulate well, with just her mild amount of dizziness. The patient did not have any worsening of the dizziness with turning of her head or looking back over her shoulder or looking at the ceiling. She did not have any neurologic symptoms with this, and her neurologic exam remains unchanged throughout the hospitalization without any focal neurologic findings. On the day of discharge, the patient was ambulating well, eating well. Her orthostatic vital signs were rechecked, and she no longer had a significant drop in her blood pressure, going from lying to sitting or from sitting to standing. Drops were all less than 10 mmHg. It was felt she was stable for discharge to home. It is recommended that she follow up with her neurologist for further evaluation of this and possibly a grocery carrier in the future. It was also recommended that the patient stop drinking large amounts of vodka she is drinking as this may be affecting her dizziness, and that she try to eat a well-balanced diet and stay well hydrated. DISCHARGE MANAGEMENT: Discharged to home. Follow up with primary care physician in 7 days and with neurology within the next month. ACTIVITY: As tolerated. DIET: Healthy heart diet. DISCHARGE MEDICATIONS: The patient is to continue her home medications. 1. Arimidex 1 mg daily. 2. Buspirone 15 mg at night. 3. Cetirizine 10 mg daily. 4. Plavix 75 mg daily. 5. Advair Diskus 250/50 one inhalation twice a day. 6. Synthroid 137 mcg daily. 7. Oxybutynin extended release 10 mg daily. 8. Pramipexole 0.5 mg at night. 9. Sertraline 50 mg daily. 10. Simvastatin 40 mg at night. Job ID: [id number] MTDD
== END 2020-05-06 14:40 | disposition home or self-care (01) ==
LOC: ERS 11:42 → SURG A 16:57
PROVIDERS: ADMIT Internal Medicine; ATTEND Internal Medicine
DX: I95.1 Orthostatic hypotension (principal); E87.1 Hypo-osmolality and hyponatremia; E86.0 Dehydration; J44.9 Chronic obstructive pulmonary disease, unspecified; E03.9 Hypothyroidism, unspecified; E78.5 Hyperlipidemia, unspecified; F10.10 Alcohol abuse, uncomplicated; F41.9 Anxiety disorder, unspecified; Z79.899 Other long term (current) drug therapy; Z86.73 Personal history of transient ischemic attack (TIA), and cerebral infarction without residual deficits; Z87.891 Personal history of nicotine dependence; Z88.5 Allergy status to narcotic agent; Z91.048 Other nonmedicinal substance allergy status
CPT/HCPCS: 36415; 71045; 80053; 83690; 83880; 84484; 85025; 93005; 96360; 96361; G0378

== ENCOUNTER 2020-10-10 10:48 | Inpatient (IN) | payer MEDICARE ==
[2020-10-10] MEDS ORDERED: Morphine 4 MG/ML VIAL ONE (12:09)
--- NOTE | 2020-10-10 12:18 | RAD ---
LEFT KNEE 4 VIEWS: HISTORY: Fall, left knee pain. FINDINGS/IMPRESSION: There is a mildly displaced fracture involving the lateral aspect of the distal femur (including late ral femoral condyle) with fracture line extending into the articular surface. POS: MZA
--- NOTE | 2020-10-10 12:19 | RAD ---
RIGHT KNEE 4 VIEWS: HISTORY: Fall, right knee pain. FINDINGS/IMPRESSION: No acute fracture or dislocation is seen. POS: CHRISTOPHERA
--- NOTE | 2020-10-10 12:19 | RAD ---
LEFT FEMUR 2 VIEWS: HISTORY: Fall, left knee pain. FINDINGS/IMPRESSION: There are postop changes of total left hip arthroplasty in good position and alignment. There is a m ildly distressed fracture of the lateral aspect of the distal femur with inclusion of the lateral fem oral condyle and fracture line extending into the articular surface. POS: MZA
--- NOTE | 2020-10-10 12:20 | RAD ---
AP PELVIS: HISTORY: Fall, left knee pain. FINDINGS/IMPRESSION: There are postop changes of total hip arthroplasty bilaterally in good position and alignment. No ac lucita fracture or dislocation is identified. POS: CHRISTOPHERA
[2020-10-10 12:21] LABS: PTT 30.9 sec (22.9-36.1); Prothrombin Time 13.5 sec (12.0-14.7)
--- NOTE | 2020-10-10 12:21 | RAD ---
LEFT HAND 3 VIEWS: HISTORY: Fall, left hand pain. FINDINGS/IMPRESSION: Degenerative changes are present. No acute fracture or dislocation is identified. POS: MESHA
[2020-10-10 12:22] LABS: Hemoglobin 14.6 g/dL (12.0-16.0); Mean Corpuscular HGB CONC 33.4 g/dL (32.0-36.0); Mean Corpuscular Hemoglobin 30.4 pg (27.0-31.0); RBC Distribution Width 12.8 % (11.5-14.5); White Blood Cell (WBC) Count 8.1 thou/uL (4.8-10.8)
[2020-10-10 12:39] LABS: ALT (SGPT) 27 U/L (8-55); AST (SGOT) 37 U/L (5-34); Albumin 4.2 g/dL (3.4-4.8); Alkaline Phosphatase 70 U/L (40-110); Anion Gap 15 mmol/L (10-20); BUN (Urea Nitrogen) 13 mg/dL (9.8-20.1); Bilirubin, Total 0.4 mg/dL (0.2-1.2); Calc. Creatinine Clearance 0 mL/min (70-130); Calcium 8.7 mg/dL (7.8-10.44); Carbon Dioxide 26 mmol/L (23-31); Chloride 98 mmol/L (98-107); Estimated GFR-MDRD 87; Globulin 3.5 g/dL (2.4-3.5); Glucose 106 mg/dL (83-110); Potassium 4.5 mmol/L (3.5-5.1); Protein, Total 7.7 g/dL (6.0-8.3); Sodium 134 mmol/L (136-145)
[2020-10-10 12:47] LABS: #Basophils 0.1 thou/uL (0.0-0.2); #Eosinphils 0.1 thou/uL (0.0-0.7); #Lymphocytes 1.6 thou/uL (1.20-3.40); #Monocytes 0.6 thou/uL (0.11-0.59); #Neutrophils 5.7 thou/uL (1.40-6.50); %Basophils 0.6 % (0.0-1.0); %Eosinophils 1.7 % (0.0-10.0); %Lymphocytes 19.4 % (21.0-51.0); %Monocytes 7.6 % (0.0-10.0); %Neutrophils 70.7 % (42.0-75.0); Mean Platelet Volume 8.1 fL (7.4-10.4); Platelet Count 119 thou/uL (130-400); Platelet Morphology Comment Appears Adequate; RBC Morphology Normal
--- NOTE | 2020-10-10 12:52 | RAD ---
PORTABLE CHEST 1 VIEW: DATE: 10/10/2020. TIME: 12:04 PM. HISTORY: Preoperative evaluation, left femur fracture. FINDINGS: Comparison is made with the exam of 05/05/2020. The heart size is normal. The lungs are expanded without lobar consolidation, pneumothoraces, or ple ural effusions. There are surgical clips in the left axilla. IMPRESSION: No acute process. POS: MESHA
--- NOTE | 2020-10-10 13:41 | CON ---
DATE OF CONSULTATION: 10/10/2020 CHIEF COMPLAINT: Left knee pain. HISTORY OF PRESENT ILLNESS: Ms. Carrera is a 70-year-old female, who was walking outside her house today. She tripped on a weed eater. She fell striking both knees. She landed on a cement surface. She had severe pain in the left knee. She was unable to ambulate. Her right knee pain was more minor. She was taken to the emergency department, where she was found to have an intra-articular left distal femur fracture of the lateral condyle. CT scan as well as x-rays have been done and confirmed this. Orthopedics was consulted for this injury. She is being admitted to the hospital by the General Surgery Trauma Service. The patient is comfortable currently. She is in a knee immobilizer. She is eating a lunch. PAST MEDICAL HISTORY: 1. Hypothyroidism. 2. Hyperlipidemia. 3. COPD. 4. Previous TIA. 5. History of breast cancer. PAST SURGICAL HISTORY: 1. Left breast lumpectomy. 2. Bilateral total hip arthroplasties. 3. Hysterectomy. 4. Tubal ligation. 5. Tonsillectomy. SOCIAL HISTORY: The patient does drink alcohol daily. She denies tobacco or drug use. REVIEW OF SYSTEMS: Positive for left knee pain. Otherwise, negative 10-point review of systems. FAMILY MEDICAL HISTORY: Noncontributory. IMAGING DATA: X-rays of the left knee and femur demonstrate a displaced lateral condyle fracture of the femur, which is intra-articular with a step-off. Right knee x-ray is negative for acute fracture. PHYSICAL EXAMINATION: GENERAL: The patient is alert, sitting upright. No apparent distress. HEENT: Normocephalic, atraumatic. RESPIRATORY: Breathing comfortably. CARDIOVASCULAR: Pulses palpable and regular. ABDOMEN: Soft, nontender, nondistended. MUSCULOSKELETAL: The patient's right knee has a superficial abrasion. She is able to flex and extend the knee. She is neurovascularly intact in both feet. Her left knee has an abrasion and a large amount of ecchymosis. She has pain to palpation and cannot flex or extend the left knee. UPPER EXTREMITIES: Atraumatic. IMPRESSION: Left intra-articular lateral condyle fracture of the distal femur. PLAN: The patient will be admitted to the hospital tonight. She will have pain control. She will have DVT prophylaxis. She will have appropriate medical optimization for surgery. Regarding her fracture, I will plan to take her to the operating room tomorrow for open reduction and internal fixation of the distal femur fracture. Goal will be to restore the anatomic alignment of the articular surface and promote healing. Risks have been reviewed, which do include nerve or vascular injury, deep bleeding, wound complication, nonunion, malunion, medical complications, and others. She will be n.p.o. at midnight. We will proceed tomorrow. Job ID: [id number]
[2020-10-10] MEDS ORDERED: Ketorolac Tromethamine 30 MG/ML VIAL ONE (13:44)
[2020-10-10] MEDS ORDERED: Cyclobenzaprine 10 MG TAB ONE (13:44)
[2020-10-10] MEDS ORDERED: Dextrose 50% Abboject 50 ML SYRINGE SLOW IVP PRN (15:05)
[2020-10-10] MEDS ORDERED: Dextrose 5% in Water 1,000 ML IV PRN (15:05)
[2020-10-10] MEDS ORDERED: Ondansetron ODT 4 MG TAB PO PRN (15:05)
[2020-10-10] MEDS ORDERED: Cyclobenzaprine 10 MG TAB PO PRN (15:05)
[2020-10-10] MEDS ORDERED: traMADol HCl 50 MG TAB PO PRN (15:05)
[2020-10-10] MEDS ORDERED: Ondansetron PF 4 MG/2 ML Vial IVP PRN (15:05)
[2020-10-10] MEDS ORDERED: Albuterol 200 PUFF (6.7GM INHALER) INH PRN (15:10)
[2020-10-10 16:12] VITALS: BMI 30.4
[2020-10-10] MEDS: Acetaminophen 325 MG TAB PO SCH ×2 (16:49→23:49)
[2020-10-10] MEDS: Ibuprofen 600 MG TAB PO SCH ×2 (16:50→23:50)
[2020-10-10] MEDS: traMADol HCl 50 MG TAB PO PRN ×2 (16:50→21:56)
[2020-10-10] MEDS: Morphine 2 MG/ML VIAL SLOW IVP PRN ×2 (16:51→23:58)
[2020-10-10] MEDS: Sodium Chloride 0.9% 1,000 ML IV SCH (16:58)
--- NOTE | 2020-10-10 17:29 | HP ---
This is Armani Mc PA-C dictating a report for Kassi Moscoso MD. REQUESTING PHYSICIAN: Dr. Casillas. CONSULTATIONS: Orthopedics, Dr. Boogie. HISTORY OF PRESENT ILLNESS: The patient is a 70-year-old woman, who was walking in her yard when she tripped over a pan reclaim processor, landing on both knees. She had immediate pain to her left greater than right knee. She was brought to the emergency department where she underwent evaluation and examination, was noted to have a left lateral condyle fracture of her femur, at which time we were asked to evaluate the patient for admission and obtain Orthopedic consultation. The patient did not hit her head, have any loss of consciousness or syncopal episodes around her fall. ALLERGIES: CODEINE, LATEX, ROPINIROLE. CURRENT MEDICATIONS: 1. Buspirone. 2. Zyrtec. 3. Albuterol. 4. Advair. 5. Clopidogrel. 6. Levothyroxine. 7. Simvastatin. 8. Sertraline. 9. Anastrozole. 10. Oxybutynin. 11. Pramipexole. PAST MEDICAL HISTORY: COPD, TIA, hyperlipidemia, hypothyroidism, and breast CA. PAST SURGICAL HISTORY: Breast lumpectomy, bilateral total hip arthroplasties, bilateral tubal ligation, tonsillectomy, hysterectomy. SOCIAL HISTORY: The patient lives at home with family. She reports that she drinks three 6-ounce glasses of vodka a day. She quit smoking approximately 10 years ago. Denies drug use. PHYSICAL EXAMINATION: VITAL SIGNS: Blood pressure 135/68, heart rate 68, respirations 18, oxygen saturation 95% on room air, and temperature is 97.9. GENERAL: The patient is resting comfortably in bed. She was eating when I entered her room. She was awake, alert, conversant, appropriate. [place] Coma Scale is 15. HEENT: Head is normocephalic and atraumatic. Eyes, extraocular motion intact. PERRLA bilaterally. Ears are atraumatic without discharge. Nose is atraumatic without discharge. Oropharynx is clear. NECK: Nontender with trachea is midline. No JVD. CHEST: Clear to auscultation with good inspiratory and expiratory effort. HEART: Regular rate and rhythm. ABDOMEN: Soft, flat, nontender with active bowel sounds. EXTREMITIES: Neurovascularly intact x4. Left lower extremity is immobilized in a knee immobilizer. BACK: By report is atraumatic and nontender. LABORATORY FINDINGS: White blood cell count 8.1, hemoglobin 14.6, hematocrit 43.7, platelets 119. Sodium 134, potassium 4.5, chloride 98, CO2 26, BUN 13, creatinine 0.67, glucose 106. LFTs are unremarkable. INR 1.0. RADIOGRAPHIC FINDINGS: AP chest x-ray shows no acute process. AP pelvis shows no acute fracture or dislocation is identified. Views of the left femur demonstrate a mildly distracted fracture of the lateral aspect of the distal femur with inclusion of the lateral femoral condyle with fracture line extending into the articular surface. Views of the left hand show no acute fracture, dislocation. Right knee shows no acute fracture, dislocation. Left knee shows a mildly displaced fracture involving the lateral aspect of the distal femur including the lateral femoral condyle with fracture line extending into the articular surface. CT of the knee is pending. ASSESSMENT: 1. Status post ground level fall. 2. Left distal femur fracture. 3. Acute pain secondary to above. 4. History of chronic obstructive pulmonary disease. 5. Breast cancer. 6. Hyperlipidemia. 7. Hypothyroidism. PLAN: Plan will be to admit the patient to the surgical floor. We will make her n.p.o. after midnight. Today, she will have a diet, pain control, pulmonary toilet, gastritis and mechanical VTE prophylaxis. Postoperatively, we will begin physical and occupational therapy and discuss placement at that time. The patient was evaluated and examined by Dr. Boogie and Dr. Moscoso in the emergency department prior to this dictation. Job ID: [id number]
[2020-10-10] MEDS: Oxazepam 10 MG CAP PO SCH (18:24)
[2020-10-10 20:10] LABS: SARS-CoV-2 MS2 Positive; SARS-CoV-2 N Gene Negative; SARS-CoV-2 S Gene Negative; SARS-CoV-2 by NAA Not Detected (NotDetected); SARS-CoV-2 orf1ab Negative
[2020-10-10] MEDS: Famotidine 20 MG TAB PO SCH (20:22)
[2020-10-11] MEDS: Oxazepam 10 MG CAP PO SCH ×5 (02:55→21:17)
[2020-10-11] MEDS: Sodium Chloride 0.9% 1,000 ML IV SCH ×2 (05:10→08:20)
[2020-10-11] MEDS: Acetaminophen 325 MG TAB PO SCH ×4 (05:12→23:47)
[2020-10-11 05:38] LABS: #Eosinphils 0.2 thou/uL (0.0-0.7); #Lymphocytes 1.7 thou/uL (1.20-3.40); #Monocytes 0.6 thou/uL (0.11-0.59); #Neutrophils 4.5 thou/uL (1.40-6.50); %Basophils 0.5 % (0.0-1.0); %Eosinophils 2.8 % (0.0-10.0); %Lymphocytes 23.9 % (21.0-51.0); %Neutrophils 63.8 % (42.0-75.0); Hemoglobin 12.1 g/dL (12.0-16.0); Mean Corpuscular HGB CONC 33.8 g/dL (32.0-36.0); Mean Corpuscular Volume 91.6 fL (78.0-98.0); Mean Platelet Volume 7.7 fL (7.4-10.4); Platelet Count 110 thou/uL (130-400); RBC Distribution Width 12.9 % (11.5-14.5); White Blood Cell (WBC) Count 7.1 thou/uL (4.8-10.8)
[2020-10-11 05:56] LABS: Phosphorus 3.1 mg/dL (2.3-4.7)
[2020-10-11 05:57] LABS: Anion Gap 10 mmol/L (10-20); BUN (Urea Nitrogen) 11 mg/dL (9.8-20.1); Calc. Creatinine Clearance 109 mL/min (70-130); Calcium 7.9 mg/dL (7.8-10.44); Carbon Dioxide 24 mmol/L (23-31); Chloride 104 mmol/L (98-107); Estimated GFR-MDRD 85; Glucose 106 mg/dL (83-110); Magnesium 1.7 mg/dL (1.6-2.6); Sodium 134 mmol/L (136-145)
--- NOTE | 2020-10-11 07:24 | CT ---
EXAM: CT left lower extremity without contrast HISTORY: Bilateral knee pain after a fall just prior to arrival; distal femur fracture COMPARISON: Knee radiograph 10/10/2020 TECHNIQUE: Multiple contiguous axial images were obtained and a CT of the left knee without contrast. Sagittal and coronal reformats were performed. FINDINGS: There is a fracture of the distal left femur involving the lateral femoral condyle and exte nding to the lateral femorotibial compartment. There is a 3 to 4 mm step-off along the lateral joint space. Very minimal osteophytes are seen in the medial and lateral femorotibial compartments. There is also a minimally displaced fracture of the patella which is vertically oriented. A knee effusion is seen with a fat fluid level. Moderate soft tissue swelling is seen anterior to the knee. IMPRESSION: 1. Intra-articular distal femur fracture 2. Patellar fracture
[2020-10-11] MEDS: Ibuprofen 600 MG TAB PO SCH ×3 (08:10→23:52)
[2020-10-11] MEDS: Famotidine 20 MG TAB PO SCH ×2 (08:11→21:13)
[2020-10-11] MEDS: Morphine 2 MG/ML VIAL SLOW IVP PRN (08:11)
[2020-10-11] MEDS ORDERED: Magnesium Sulfate 2 GM in Sodium Chloride 0.9% 250 ML 250 ML IVPB SCH (08:30)
[2020-10-11] MEDS ORDERED: CEFAZOLIN 2 GM in Premix Bag 1 BAG IVPB SCH (10:00)
[2020-10-11] MEDS ORDERED: Ondansetron PF 4 MG/2 ML Vial ONE (10:39)
[2020-10-11] MEDS ORDERED: Lidocaine 1% PF 5 ML VIAL ONE (10:39)
[2020-10-11] MEDS ORDERED: Dexamethasone 20 MG/5 ML VIAL ONE (10:39)
[2020-10-11] MEDS ORDERED: PROPOFOL 200 MG/20 ML VIAL ONE (10:39)
[2020-10-11] MEDS ORDERED: Rocuronium Bromide 10 MG/ML (10ML VIAL) ONE (10:39)
[2020-10-11] MEDS ORDERED: Ketorolac Tromethamine 30 MG/ML VIAL ONE (10:39)
[2020-10-11] MEDS ORDERED: ePHEDrine 50 MG/ML VIAL ONE (10:39)
[2020-10-11] MEDS ORDERED: Glycopyrrolate 0.2 MG/ML 5 ML SYRINGE ONE (10:39)
[2020-10-11] MEDS ORDERED: Morphine 2 MG/ML VIAL ONE (11:27)
[2020-10-11] MEDS ORDERED: Phenylephrine 10 MG/ML VIAL ONE (12:22)
[2020-10-11] MEDS ORDERED: Dexmedetomidine 200 MCG/2 ML VIAL ONE (12:22)
[2020-10-11] MEDS ORDERED: Fentanyl 100 MCG/2 ML VIAL ONE (12:22)
--- NOTE | 2020-10-11 14:19 | OP ---
DATE OF PROCEDURE: 10/11/2020 PROCEDURE PERFORMED: Open reduction and internal fixation of left distal femur fracture. PREOPERATIVE DIAGNOSIS: Displaced left lateral condyle of the distal femur fracture. POSTOPERATIVE DIAGNOSIS: Displaced left lateral condyle of the distal femur fracture. COMPLICATIONS: None. ESTIMATED BLOOD LOSS: Minimal. COMMERCIAL TECHNICIAN: Guerline Moreno PA-C IMPLANT: Synthes distal femoral plate, 6-hole. INDICATIONS: Ms. Carrera is a 70-year-old who has fallen and fractured her left distal femur. She has been indicated for open reduction and internal fixation to restore anatomic alignment and promote healing. Risks have been reviewed in detail. She has elected to proceed with the operation. DESCRIPTION OF PROCEDURE: Ms. Carrera was identified in the preoperative holding area. Her correct extremity was marked. She was carried to the operating room. She was positioned supine. General anesthesia was induced. A multidisciplinary time-out was performed. We began the procedure with lateral incision to the distal femur. We dissected down through the subcutaneous tissues through the fascia. We incised the iliotibial fascia. This brought us down to the bony level. We encountered the displaced lateral condyle fracture. We made a small arthrotomy, exposing the anterior aspect of the knee. We could assess the articular reduction at that point. We irrigated to knee and then reduced the bone using a K-wire as well as a reduction clamp. We confirmed we had an anatomic reduction visually and with x-ray. At this point, we applied a 6-hole distal femoral plate along the lateral cortex. Multiple screws were placed proximally and distally allowing rigid fixation. We took final x-ray images. We thoroughly irrigated. We then closed with #2 Vicryl suture, 2-0 Vicryl suture, and galileo for the skin. A sterile dressing was applied. The patient was taken to the recovery room in good condition. The certified registered dental assistant surgeon was responsible for positioning the patient, preparing the injured extremity, applying the tourniquet, and assisting in preparation for surgery. The certified registered dental assistant was instrumental in reducing the injured limb by applying traction and reduction maneuvers as well as holding retractors and reduction tools. The certified registered dental assistant also was instrumental in assisting in exposure throughout the operation using appropriate retractors. The certified registered dental assistant participated in closure of the operative site as well as dressing application and splint application. Job ID: [id number]
[2020-10-11] MEDS ORDERED: Promethazine HCl 25 MG/ML VIAL IM PRN (14:33)
[2020-10-11] MEDS ORDERED: Promethazine HCl 25 MG/ML VIAL SLOW IVP PRN (14:33)
[2020-10-11] MEDS ORDERED: Ondansetron HCl/PF 4 MG/2 ML Vial IVP PRN (14:33)
--- NOTE | 2020-10-11 14:41 | RAD ---
LEFT FEMUR TWO VIEWS: 10/11/20 HISTORY: Fracture of the left femur. FINDINGS/IMPRESSION: Four spot fluoroscopic intraoperative images of the left distal femur demonstrate interval reduction and internal fixation of the distal femoral fracture noted on the previous day with placement of a pl ate and screws. POS: MZSheri
[2020-10-11] MEDS: CEFAZOLIN 2 GM in Premix Bag 1 BAG IVPB SCH ×2 (16:11→21:15)
--- NOTE | 2020-10-11 21:22 | PRG ---
DATE OF SERVICE: 10/11/2020 SUBJECTIVE: The patient is hospital day 2, postop day 1, status post open reduction and internal fixation of left distal femur fracture which she sustained after a ground level fall. The patient tolerated the procedure well. Postoperatively, she was able to attempt one session with Physical and Occupational therapy. She reports her pain is controlled. She is tolerating a diet. PHYSICAL EXAMINATION: VITAL SIGNS: Temperature is 97.8, heart rate 74, blood pressure 114/55, respirations 16, oxygen saturation 93% on room air. GENERAL: The patient is resting comfortably in bed. She is awake, alert, conversant, appropriate. [place] Coma Scale is 15. HEENT: Unremarkable. LUNGS: Clear to auscultation. Good inspiratory and expiratory effort. HEART: Regular rate and rhythm. ABDOMEN: Soft, nontender with hypoactive bowel sounds. EXTREMITIES: Neurovascularly intact x4. Postop dressing is clean, dry, and intact. LABORATORY FINDINGS: White blood cell count 7.1, hemoglobin 12.1, hematocrit 35.7, platelets 110. Sodium 134, potassium 4.0 chloride 104, CO2 of 24, BUN 11, creatinine 0.68, glucose 106, magnesium 1.7, phosphorus 3.1. There are no radiographs reviewed this morning. ASSESSMENT: 1. Status post ground level fall. 2. Status post open reduction and internal fixation of left distal femur fracture. 3. History of chronic obstructive pulmonary disease, breast cancer, hyperlipidemia, and hypothyroidism. PLAN: Plan will be to continue supportive care. Encourage physical and occupational therapy. Repeat labs in the morning. Begin chemical VTE prophylaxis tomorrow and begin placement. Job ID: [id number]
[2020-10-12] MEDS: Morphine 2 MG/ML VIAL SLOW IVP PRN (04:16)
--- NOTE | 2020-10-12 04:19 | HP ---
ADDENDUM: This is an addendum to the H and P dictated by Armani Mc, Trauma, PA. For full details, please see his H and P dictated on 10/10/2020, the details of which I have confirmed. I saw the patient in the emergency room on 10/10/2020 in conjunction with Mr. Mc. In short, she is a 70-year-old woman who tripped and fell landing on her knees and had immediate pain in her left knee. She was found to have lateral condyle fracture of her left femur and is being admitted for orthopedic treatment. PAST MEDICAL HISTORY: COPD, TIA, hyperlipidemia, hypothyroidism, and breast cancer. MEDICATIONS: Her medication list is reviewed. She is on, 1. Plavix. 2. Buspirone. 3. Zyrtec. 4. Albuterol. 5. Advair. 6. Synthroid. 7. Simvastatin. 8. Sertraline. 9. Anastrozole. 10. Oxybutynin. 11. Pramipexole. PAST SURGICAL HISTORY: She has had bilateral total hip replacements, tubal ligation, hysterectomy, tonsillectomy, and lumpectomy. PHYSICAL EXAMINATION: Complete physical examination was performed. HEENT: Head was atraumatic. Pupils were equal. Extraocular movements were intact. Facial movements were symmetric. NECK: Supple without lymphadenopathy or thyroid nodules. HEART: Regular in its rate and rhythm without murmurs, rubs, or gallops. LUNGS: Clear to auscultation bilaterally. CHEST: Nontender to compression. ABDOMEN: Soft, nontender, and nondistended with no palpable masses or hernias. PELVIS: Nontender to compression. EXTREMITIES: She was in a knee immobilizer with normal distal pulses and sensation on the left. No gross asymmetry and no deformity of the right leg or bilateral upper extremities. LABORATORY DATA: Lab work was unremarkable. IMAGING TRIPP: Chest and pelvic films were normal. X-ray of the left femur showed a mildly distracted fracture of the lateral condyle of the distal femur extending into the articular surface. Right knee film was normal and left hand x-rays were normal. ASSESSMENT AND PLAN: Left distal femur fracture with plans for orthopedic fixation. She was admitted to the Trauma Service and will undergo physical therapy and rehab postoperatively. Job ID: [id number]
[2020-10-12] MEDS: Oxazepam 10 MG CAP PO SCH ×3 (06:23→21:27)
[2020-10-12] MEDS: Acetaminophen 325 MG TAB PO SCH ×4 (06:23→23:40)
[2020-10-12 06:25] LABS: #Lymphocytes 1.3 thou/uL (1.20-3.40); #Monocytes 0.5 thou/uL (0.11-0.59); #Neutrophils 11.4 thou/uL (1.40-6.50); %Eosinophils 0.1 % (0.0-10.0); %Lymphocytes 9.8 % (21.0-51.0); %Monocytes 3.9 % (0.0-10.0); %Neutrophils 86.2 % (42.0-75.0); Hemoglobin 11.3 g/dL (12.0-16.0); Mean Corpuscular HGB CONC 34.7 g/dL (32.0-36.0); Mean Corpuscular Hemoglobin 32.4 pg (27.0-31.0); Mean Corpuscular Volume 93.5 fL (78.0-98.0); Mean Platelet Volume 8.2 fL (7.4-10.4); Platelet Count 104 thou/uL (130-400); RBC Distribution Width 12.9 % (11.5-14.5); Red Blood Cell (RBC) Count 3.48 mill/uL (4.20-5.40); White Blood Cell (WBC) Count 13.3 thou/uL (4.8-10.8)
[2020-10-12 06:56] LABS: Anion Gap 12 mmol/L (10-20); BUN (Urea Nitrogen) 7 mg/dL (9.8-20.1); Calc. Creatinine Clearance 117 mL/min (70-130); Calcium 8.3 mg/dL (7.8-10.44); Carbon Dioxide 21 mmol/L (23-31); Chloride 105 mmol/L (98-107); Estimated GFR-MDRD Greater than 90; Glucose 144 mg/dL (83-110); Magnesium 2.3 mg/dL (1.6-2.6); Phosphorus 2.3 mg/dL (2.3-4.7); Potassium 4.8 mmol/L (3.5-5.1); Sodium 133 mmol/L (136-145)
[2020-10-12] MEDS: Enoxaparin Sodium 40 MG/0.4 ML SYRINGE SC SCH (09:15)
[2020-10-12] MEDS: Famotidine 20 MG TAB PO SCH ×2 (09:15→21:26)
[2020-10-12] MEDS: Ibuprofen 600 MG TAB PO SCH ×3 (09:15→23:39)
[2020-10-12] MEDS: traMADol HCl 50 MG TAB PO PRN (09:16)
[2020-10-12] MEDS ORDERED: Meclizine HCl 25 MG TAB PO PRN (13:14)
--- NOTE | 2020-10-12 18:48 | PRG ---
DATE OF SERVICE: 10/12/2020 SUBJECTIVE: The patient is hospital day #3, postop day #2, status post open reduction and internal fixation of a left distal periprosthetic fracture. The patient is doing well. She had no issues overnight. She is tolerating a diet. Her pain was controlled. She has started working with physical and occupational therapy. This morning, we discussed placement, and she originally felt that she wanted to go home with home health, but she is willing to discuss inpatient rehab. We will make this consultation. PHYSICAL EXAMINATION: VITAL SIGNS: Temperature is 98.1, heart rate 76, blood pressure 100/57, respirations 14, and oxygen saturation is 95% on 2 L via nasal cannula. GENERAL: The patient is resting comfortably in bed. She is awake, alert, conversant, appropriate. [place] Coma Scale is 15. HEENT: Unremarkable. LUNGS: Have scattered rhonchi and occasional wheezes consistent with her COPD. HEART: Regular rate and rhythm. ABDOMEN: Soft, flat, nontender with active bowel sounds. EXTREMITIES: Neurovascularly intact x4. Left lower extremity was immobilized in a knee immobilizer. LABORATORY FINDINGS: White blood cell count 13.3, hemoglobin 11.3, hematocrit 32.5, and platelets 104. Sodium 133, potassium 4.8, chloride 105, CO2 of 21, BUN 7, creatinine 0.63, glucose 144, magnesium 2.3, and phosphorus 2.3. There are no radiographs reviewed this morning. ASSESSMENT: 1. Status post ground level fall. 2. Status post open reduction and internal fixation of the left distal periprosthetic fracture. 3. History of chronic obstructive pulmonary disease. 4. Breast cancer. 5. Hyperlipidemia. 6. Hypothyroidism. PLAN: Plan will be to continue supportive care. Encourage physical and occupational therapy. Repeat labs in the morning. Case Management to begin working on placement options. Job ID: [id number]
[2020-10-12] MEDS: Mometasone 200 MCG/Formoterol 5 MCG 120 PUFF INHALER INH SCH (19:45)
[2020-10-12] MEDS: busPIRone HCl 10 MG TAB PO SCH (21:26)
[2020-10-12] MEDS: Atorvastatin Calcium 20 MG TAB PO SCH (21:26)
[2020-10-12] MEDS: Pramipexole Di-HCl 1 MG TAB PO SCH (21:26)
[2020-10-12] MEDS: Senokot S 8.6-50 MG TAB PO SCH (21:27)
[2020-10-13] MEDS: Acetaminophen 325 MG TAB PO SCH ×3 (05:43→17:00)
[2020-10-13] MEDS: Levothyroxine Sodium 125 MCG TAB PO SCH (05:43)
[2020-10-13] MEDS: Oxazepam 10 MG CAP PO SCH ×3 (05:43→21:26)
[2020-10-13] MEDS: Mometasone 200 MCG/Formoterol 5 MCG 120 PUFF INHALER INH SCH (06:51)
[2020-10-13] MEDS ORDERED: Calcium Carbonate 500 MG ChewTAB PO PRN (06:58)
[2020-10-13] MEDS: Ibuprofen 600 MG TAB PO SCH ×2 (09:05→17:00)
[2020-10-13] MEDS: Famotidine 20 MG TAB PO SCH ×2 (09:05→21:25)
[2020-10-13] MEDS: Polyethylene Glycol 3350 17 GM Packet PO SCH (09:05)
[2020-10-13] MEDS: Anastrozole 1 MG TAB PO SCH (09:06)
[2020-10-13] MEDS: Oxybutynin ER 5 MG TAB PO SCH (09:07)
[2020-10-13] MEDS: Enoxaparin Sodium 40 MG/0.4 ML SYRINGE SC SCH (09:07)
[2020-10-13] MEDS: Clopidogrel Bisulfate 75 MG TAB PO SCH (09:07)
[2020-10-13] MEDS: Senokot S 8.6-50 MG TAB PO SCH ×2 (09:07→21:24)
[2020-10-13] MEDS: traMADol HCl 50 MG TAB PO PRN ×2 (09:12→17:29)
[2020-10-13] MEDS: Atorvastatin Calcium 20 MG TAB PO SCH (21:25)
[2020-10-13] MEDS: Pramipexole Di-HCl 1 MG TAB PO SCH (21:25)
[2020-10-13] MEDS: busPIRone HCl 10 MG TAB PO SCH (21:26)
[2020-10-14] MEDS: Mometasone 200 MCG/Formoterol 5 MCG 120 PUFF INHALER INH SCH ×3 (00:05→18:40)
[2020-10-14] MEDS: Ibuprofen 600 MG TAB PO SCH ×4 (00:17→23:55)
[2020-10-14] MEDS: Acetaminophen 325 MG TAB PO SCH ×5 (00:17→23:55)
[2020-10-14] MEDS: Oxazepam 10 MG CAP PO SCH ×3 (05:27→20:55)
[2020-10-14] MEDS: Levothyroxine Sodium 125 MCG TAB PO SCH (05:28)
[2020-10-14] MEDS: traMADol HCl 50 MG TAB PO PRN ×2 (06:01→20:54)
[2020-10-14] MEDS: Oxybutynin ER 5 MG TAB PO SCH (09:16)
[2020-10-14] MEDS: Famotidine 20 MG TAB PO SCH ×2 (09:16→20:55)
[2020-10-14] MEDS: Anastrozole 1 MG TAB PO SCH (09:17)
[2020-10-14] MEDS: Clopidogrel Bisulfate 75 MG TAB PO SCH (09:17)
[2020-10-14] MEDS: Polyethylene Glycol 3350 17 GM Packet PO SCH (09:18)
[2020-10-14] MEDS: Enoxaparin Sodium 40 MG/0.4 ML SYRINGE SC SCH (09:18)
[2020-10-14] MEDS: Senokot S 8.6-50 MG TAB PO SCH ×2 (09:18→20:56)
[2020-10-14] MEDS ORDERED: Thiamine 100 MG TAB PO SCH (09:30)
[2020-10-14] MEDS: Folic Acid 1 MG TAB PO SCH (09:33)
[2020-10-14] MEDS: Multivitamin W/ Minerals 1 TAB PO SCH (09:33)
--- NOTE | 2020-10-14 20:06 | PRG ---
DATE OF SERVICE: SUBJECTIVE: The patient remains on the surgical floor. She is hospital day 4, postop day 3, status post open reduction and internal fixation of left distal periprosthetic femur fracture. The patient had no issues overnight. This morning, when we arrived in her room, she was working with Physical Therapy. She is awaiting discussion with Case Management regarding her placement. She is open to discuss inpatient rehab. We have made it clear to her that this is our recommendation. PHYSICAL EXAMINATION: VITAL SIGNS: Temperature is 98, heart rate 88, blood pressure 147/83, respirations 18, oxygen saturation 95% on room air. GENERAL: The patient is resting comfortably in the bedside chair. She is working with Physical Therapy. She is awake, alert. [place] Coma Scale is 15. HEENT: Unremarkable. RESPIRATIONS: Nonlabored. Equal rise and fall of her chest. ABDOMEN: Nondistended. EXTREMITIES: The patient is moving all extremities freely. She has her left lower extremity in a knee immobilizer. LABORATORY DATA: There are no labs or radiographs reviewed this morning. ASSESSMENT AND PLAN: 1. Status post ground-level fall. 2. Status post open reduction and internal fixation of left distal periprosthetic femur fracture. 3. History of chronic obstructive pulmonary disease, breast cancer, hyperlipidemia, hypothyroidism. PLAN: Will be to encourage physical and occupational therapy, supportive care and await placement decision. The patient is on Plavix for VTE prophylaxis. The patient was evaluated with Dr. Francis during rounds this morning. Job ID: [id number]
[2020-10-14] MEDS: Pramipexole Di-HCl 1 MG TAB PO SCH (20:54)
[2020-10-14] MEDS: busPIRone HCl 10 MG TAB PO SCH (20:55)
[2020-10-14] MEDS: Atorvastatin Calcium 20 MG TAB PO SCH (20:55)
[2020-10-15] MEDS: Oxazepam 10 MG CAP PO SCH ×3 (05:12→21:24)
[2020-10-15] MEDS: Levothyroxine Sodium 125 MCG TAB PO SCH (05:12)
[2020-10-15] MEDS: Acetaminophen 325 MG TAB PO SCH ×4 (05:12→23:36)
[2020-10-15] MEDS: Mometasone 200 MCG/Formoterol 5 MCG 120 PUFF INHALER INH SCH ×2 (08:42→18:20)
[2020-10-15] MEDS: Anastrozole 1 MG TAB PO SCH (09:38)
[2020-10-15] MEDS: Polyethylene Glycol 3350 17 GM Packet PO SCH (09:39)
[2020-10-15] MEDS: Ibuprofen 600 MG TAB PO SCH ×3 (09:39→23:36)
[2020-10-15] MEDS: Famotidine 20 MG TAB PO SCH ×2 (09:39→21:25)
[2020-10-15] MEDS: Oxybutynin ER 5 MG TAB PO SCH (09:40)
[2020-10-15] MEDS: Folic Acid 1 MG TAB PO SCH (09:40)
[2020-10-15] MEDS: Multivitamin W/ Minerals 1 TAB PO SCH (09:41)
[2020-10-15] MEDS: Senokot S 8.6-50 MG TAB PO SCH ×2 (09:41→21:25)
[2020-10-15] MEDS: Thiamine 100 MG TAB PO SCH (09:41)
[2020-10-15] MEDS: Clopidogrel Bisulfate 75 MG TAB PO SCH (09:41)
--- NOTE | 2020-10-15 16:39 | PRG ---
DATE OF SERVICE: 10/15/2020 SUBJECTIVE: The patient was seen this morning during rounds. She was sitting up in bed with no signs of acute distress. She reported her pain is well controlled. Tolerating a diet. Working with Physical and Occupational therapy and voiding without difficulties. Nursing reported no acute events. OBJECTIVE: VITAL SIGNS: Temperature 97.7, pulse 71, respirations 18, oxygen saturation 93% on room air, blood pressure 120/71. GENERAL: Well-appearing elderly female, sitting up in bed, awake and alert with no signs of acute distress. PULMONARY: Equal chest rise and fall. Clear breath sounds bilaterally. No signs of acute respiratory distress. CARDIAC: Regular rate and rhythm. GI: Abdomen is soft, nontender, nondistended. EXTREMITIES: 2+ pulses in all extremities. Gross motor and sensation intact. No significant swelling noted. NEURO: GCS is 15. Pupils equal, round, reactive to light bilaterally. LABORATORY FINDINGS: There are no new laboratory findings to discuss. DIAGNOSTIC FINDINGS: There are no new diagnostic findings to discuss. ASSESSMENT: 1. Status post mechanical fall from standing, on Plavix. 2. Left distal femur fracture, status post repair. 3. History of chronic obstructive pulmonary disease, transient ischemic attack, hyperlipidemia, hypothyroidism, breast cancer. PLAN: Continue current diet and pain regimen. Continue physical and occupational therapy. Continue all home medications as previously prescribed. The patient is currently on Plavix and Lovenox for DVT prophylaxis. We will discontinue Lovenox and only continue with Plavix as is appropriate for her current injury. The patient is ready for discharge at this time and is pending placement for an insurance authorization to [facility]. This patient was discussed with Dr. Francis. Job ID: [id number] [facility] HOSPITALAlejandro
[2020-10-15] MEDS: Pramipexole Di-HCl 1 MG TAB PO SCH (21:23)
[2020-10-15] MEDS: busPIRone HCl 10 MG TAB PO SCH (21:24)
[2020-10-15] MEDS: Atorvastatin Calcium 20 MG TAB PO SCH (21:25)
[2020-10-16] MEDS: Levothyroxine Sodium 125 MCG TAB PO SCH (05:31)
[2020-10-16] MEDS: Acetaminophen 325 MG TAB PO SCH ×2 (05:31→12:00)
[2020-10-16] MEDS: Oxazepam 10 MG CAP PO SCH ×2 (05:31→14:11)
[2020-10-16 06:21] LABS: #Eosinphils 0.3 thou/uL (0.0-0.7); #Monocytes 0.9 thou/uL (0.11-0.59); #Neutrophils 5.8 thou/uL (1.40-6.50); %Basophils 0.4 % (0.0-1.0); %Eosinophils 3.5 % (0.0-10.0); %Lymphocytes 22.2 % (21.0-51.0); %Monocytes 9.9 % (0.0-10.0); %Neutrophils 63.9 % (42.0-75.0); Hemoglobin 10.9 g/dL (12.0-16.0); Mean Corpuscular Hemoglobin 31.3 pg (27.0-31.0); Mean Corpuscular Volume 91.9 fL (78.0-98.0); Mean Platelet Volume 7.6 fL (7.4-10.4); Platelet Count 143 thou/uL (130-400); RBC Distribution Width 13.2 % (11.5-14.5); White Blood Cell (WBC) Count 9.1 thou/uL (4.8-10.8)
[2020-10-16 06:45] LABS: Anion Gap 14 mmol/L (10-20); BUN (Urea Nitrogen) 15 mg/dL (9.8-20.1); Calc. Creatinine Clearance 110 mL/min (70-130); Carbon Dioxide 25 mmol/L (23-31); Chloride 99 mmol/L (98-107); Estimated GFR-MDRD 87; Glucose 111 mg/dL (83-110); Magnesium 1.7 mg/dL (1.6-2.6); Phosphorus 4.4 mg/dL (2.3-4.7); Potassium 4.3 mmol/L (3.5-5.1); Sodium 134 mmol/L (136-145)
[2020-10-16] MEDS ORDERED: Magnesium 2 GM/50 ML 2 GM in Premix Bag 1 BAG IVPB SCH (07:15)
[2020-10-16] MEDS: Mometasone 200 MCG/Formoterol 5 MCG 120 PUFF INHALER INH SCH (07:26)
[2020-10-16] MEDS: Polyethylene Glycol 3350 17 GM Packet PO SCH (08:15)
[2020-10-16] MEDS: Thiamine 100 MG TAB PO SCH (08:16)
[2020-10-16] MEDS: Oxybutynin ER 5 MG TAB PO SCH (08:16)
[2020-10-16] MEDS: Folic Acid 1 MG TAB PO SCH (08:16)
[2020-10-16] MEDS: Senokot S 8.6-50 MG TAB PO SCH (08:16)
[2020-10-16 08:17] VITALS: TEMP 97.9
[2020-10-16] MEDS: Clopidogrel Bisulfate 75 MG TAB PO SCH (08:17)
[2020-10-16] MEDS: Multivitamin W/ Minerals 1 TAB PO SCH (08:17)
[2020-10-16] MEDS: Famotidine 20 MG TAB PO SCH (08:17)
[2020-10-16] MEDS: Ibuprofen 600 MG TAB PO SCH ×2 (08:17→16:26)
[2020-10-16] MEDS: Anastrozole 1 MG TAB PO SCH (08:24)
[2020-10-16] MEDS: traMADol HCl 50 MG TAB PO PRN (14:11)
[2020-10-16 16:42] VITALS: BP 135/76
--- NOTE | 2020-10-16 22:37 | DIS ---
DATE OF ADMISSION: 10/10/2020 DATE OF DISCHARGE: 10/16/2020 ADMISSION DIAGNOSIS: Mechanical fall, on Plavix; left distal femur fracture. DISCHARGE DIAGNOSIS: Mechanical fall, on Plavix; left distal femur fracture. CONSULTING PHYSICIAN: Dr. Boogie of Orthopedic Surgery. PROCEDURE: The patient went to the OR on October 11 and had an ORIF of the left distal femur fracture. HOSPITAL COURSE: The patient is a 70-year-old female who presented to the emergency department after a mechanical fall on Plavix. She was found to have a left distal femur fracture. She was admitted to the Trauma Service and Dr. Boogie was consulted. He completed an ORIF of the left distal femur on October 11. She was restarted on her home medications as indicated as well as her Plavix after her hemoglobin was stable postoperatively. She worked with Physical and Occupational Therapy and was ultimately deemed safe to go home with home physical therapy and strong family support. At the time of discharge, the patient's pain was well controlled. She was tolerating a regular diet. She was moving around safely with a walker and voiding without difficulties. DISCHARGE DISPOSITION: Home with home health. DISCHARGE CONDITION: Satisfactory. PHYSICAL EXAMINATION: VITAL SIGNS: Temperature 97.9, pulse 73, respirations 18, oxygen saturation 93% on room air, blood pressure 135/67. GENERAL: Well-appearing elderly female, sitting up in chair with no signs of distress. PULMONARY: Equal chest rise and fall. Clear breath sounds bilaterally. No signs of acute respiratory distress. CARDIAC: Regular rate and rhythm. GASTROINTESTINAL: Abdomen is soft, nontender, nondistended. EXTREMITIES: 2+ pulse in all extremities. No significant swelling noted. NEURO: GCS is 15. Pupils equal, round, reactive to light bilaterally. DISCHARGE INSTRUCTIONS: The patient was discharged home. Activity as tolerated. Strict nonweightbearing to the left lower extremity. Regular diet. She will have home physical therapy, incentive spirometry, and a walker. MEDICATIONS: Include: 1. Tylenol. 2. Anastrozole. 3. Buspirone. 4. Plavix. 5. Flexeril. 6. Pepcid. 7. Advair Diskus. 8. Ibuprofen. 9. Synthroid. 10. Meclizine. 11. Oxybutynin. 12. MiraLAX. 13. Pramipexole. 14. Dihydrochloride. 15. Sertraline. 16. Simvastatin. 17. Tramadol. FOLLOWUP APPOINTMENTS: No followup is needed with Dr. Francis in clinic. The patient will follow up with Dr. Boogie in about 10 days. This patient was seen and evaluated by myself and Dr. Francis on the day of discharge. This is merely a summary of the patient's hospitalization. For full details, please see her medical record in its entirety. Job ID: [id number]
--- NOTE | 2020-10-17 07:02 | PQF ---
Dear : Ame Hamm Date 10/17/2020 Please exercise your independent, professional judgment in responding to the clarification form. Clinical indicators are provided on the bottom of this form for your review Can you please further clarify the diagnosis of the patient? Please check appropriate box(es): [ ] Hyponatremia [ X ] Not Clinically Significant laboratory findings [ ] Other diagnosis, please specify [ ] Unable to determine Physician Signature: Date/Time: For continuity of documentation, please document condition throughout progress notes and discharge summary. Thank You. To be completed by CDI/Coding staff for physician review: Present Clinical Indicators - Signs / Symptoms / Labs Results and Location in Medical Record [ x ] Sodium: 134L, 134L, 133L, 134L Laboratory [ x ] awake and alert with no signs of acute distress PN 10/15 Present Risk Factors Results and Location in Medical Record [ x ] 70 years old H and P pg.1 [ x ] Breast cancer H and P pg.1 [ x ] HLD H and P pg.1 [ x ] Smoker ED Notes 10/10 [ x ] Hypothyroidism Consult 10/10 Present Treatments Results and Location in Medical Record [ x ] Sodium monitoring Laboratory [ x ] IV Fluids MAR CDS/Rouge Mixer Signature: Michael Perez Phone #: ext [phone] Date 10/17/2020 This is a permanent part of the Medical Record [facility]
[2020-10-17] MEDS ORDERED: Magnesium Oxide 400 MG TAB PO SCH (09:00)
--- NOTE | 2020-10-19 14:50 | EKG ---
Test Reason : Blood Pressure : / mmHG Vent. Rate : 062 BPM Atrial Rate : 062 BPM P-R Int : 160 ms QRS Dur : 078 ms QT Int : 436 ms P-R-T Axes : 051 036 045 degrees QTc Int : 442 ms Normal sinus rhythm with sinus arrhythmia T wave abnormality, consider anterior ischemia Abnormal ECG Confirmed by INDY MARCUS, JONI ([id number]), editor in chief newspaper KLAUS POLO ([id number]) on 10/19/2020 2:50:20 PM Referred By: Confirmed By:JONI PUTNAM MD
== END 2020-10-16 17:00 | disposition home health service (06) | DRG 482 ==
LOC: ERS 10:48 → SURG A 12:13
PROVIDERS: ADMIT Surgery; ATTEND Surgery
PROC: 0QSC04Z Reposition Left Lower Femur with Internal Fixation Device, Open Approach (ICD-10-PCS; principal; 2020-10-11)
DX: S72.422A Displaced fracture of lateral condyle of left femur, initial encounter for closed fracture (principal); Z20.828 Contact with and (suspected) exposure to other viral communicable diseases; E03.9 Hypothyroidism, unspecified; E78.5 Hyperlipidemia, unspecified; J44.9 Chronic obstructive pulmonary disease, unspecified; Z96.643 Presence of artificial hip joint, bilateral; Z88.5 Allergy status to narcotic agent; Z88.8 Allergy status to other drugs, medicaments and biological substances; Z79.899 Other long term (current) drug therapy; Z91.040 Latex allergy status; Z86.73 Personal history of transient ischemic attack (TIA), and cerebral infarction without residual deficits; Z79.890 Hormone replacement therapy; Z90.710 Acquired absence of both cervix and uterus; Z98.51 Tubal ligation status; Z85.3 Personal history of malignant neoplasm of breast
CPT/HCPCS: 36415; 71045; 72170; 76000; 80048; 80053; 83735; 84100; 85025; 85610; 85730; 87635; 93005; 96374; C1713; G0390; J0690; J1100; J1650; J1885; J2270; J2370; J2405; J2704; J3010; J3475; J3490; J7050; U0003

== ENCOUNTER 2021-03-21 08:59 | Outpatient (CLI) | payer MEDICARE | END 2021-03-21 09:00 | disposition home or self-care (01) | LOC: BICMAMMO 08:59 | PROVIDERS: ATTEND Family Medicine | DX: Z12.31 Encounter for screening mammogram for malignant neoplasm of breast (principal); Z80.3 Family history of malignant neoplasm of breast; Z85.3 Personal history of malignant neoplasm of breast; M81.8 Other osteoporosis without current pathological fracture | CPT/HCPCS: 77063; 77067; 77080 ==

== ENCOUNTER 2021-04-28 12:19 | Outpatient (CLI) | payer MEDICARE | END 2021-04-28 12:20 | disposition home or self-care (01) | LOC: BICRAD 12:19 | PROVIDERS: ATTEND Internal Medicine Pulmonary Disease | DX: R06.00 Dyspnea, unspecified (principal) | CPT/HCPCS: 71046 ==